=== PATIENT | female | born 1955 | race American Indian/Alaskan Native ===

== ENCOUNTER 2016-11-15 13:55 | Emergency (ER) | payer MEDICAID, OTHER ==
[2016-11-15 13:55] VITALS: BMI 25.7
[2016-11-15 14:11] VITALS: TEMP 97.9
--- NOTE | 2016-11-15 14:23 | C.PDOC ---
History Of Present Illness 61 yr old female with PMHx of HTN and strong FHx of CVA (Brother of stroke and sister recently had 1 stoke), presents to the ER stating she has been very stressed recently due to her sister health and for the past 3 days she has been feeling chest pressure which comes and goes associated with SOB, palpitations and persistent headache. Patient states today she had a brief episode of where she had double vision which lasted for few minutes. Patient reports she takes 3 different blood pressure medicine which has already taken today and is compliant on a daily base. Patient denies fever, chills, chest pain, nausea, vomiting, weakness or numbness. Time Seen by Provider: 11/15/16 14:09 Chief Complaint (Nursing): Palpitations History Per: Patient History/Exam Limitations: no limitations Onset/Duration Of Symptoms: Days (Few days stressed. 3 days of chest pressure. ) Past Medical History Vital Signs: Last Vital Signs Temp 97.9 F 11/15/16 14:07 Pulse 71 11/15/16 15:53 Resp 14 11/15/16 15:53 BP 149/93 H 11/15/16 15:53 Pulse Ox 100 11/15/16 15:53 - Medical History PMH: Anxiety, Arthritis, Asthma (NEWLY DIAGNOSED), Cardia Arrhythmia, HTN, Hypercholesterolemia Denies: Chronic Kidney Disease Surgical History: Cholecystectomy, Endoscopy - [facility] Procedures COLONOSCOPY (02/01/15) LAPAROSCOPIC CHOLECYSTECTOMY (12/22/14) LAPAROSCOPIC ROBOTIC ASSISTED PROCEDURE (12/22/14) Family History: States: Unknown Family Hx - Social History Hx Tobacco Use: No Hx Alcohol Use: Yes Hx Substance Use: No - Immunization History Hx Tetanus Toxoid Vaccination: No Hx Influenza Vaccination: No Hx Pneumococcal Vaccination: No Review Of Systems Except As Marked, All Systems Reviewed And Found Negative. Constitutional: Negative for: Fever, Chills Eyes: Positive for: Vision Change (Double vision ) Cardiovascular: Negative for: Chest Pain, Palpitations Respiratory: Positive for: Shortness of Breath Gastrointestinal: Negative for: Nausea, Vomiting Neurological: Positive for: Headache (Persistent headache ). Negative for: Weakness, Numbness Physical Exam - Physical Exam Appears: Well, Non-toxic, No Acute Distress Skin: Normal Color, Warm, Dry, No Rash Head: Atraumatic, Normacephalic Eye(s): bilateral: Normal Inspection, PERRL, EOMI Oral Mucosa: Moist Neck: Normal, Normal ROM, Supple Chest: Symmetrical, No Tenderness Cardiovascular: Rhythm Regular, No Murmur Respiratory: Normal Breath Sounds, No Rales, No Rhonchi, No Stridor, No Wheezing Gastrointestinal/Abdominal: Normal Exam, Soft, No Tenderness, No Guarding, No Rebound Extremity: Normal ROM, No Swelling Neurological/Psych: Oriented x3, Normal Speech, Normal Motor, Normal Sensation ED Course And Treatment - Laboratory Results Result Diagrams: 11/15/16 14:21 11/15/16 14:21 Lab Interpretation: No Acute Changes ECG: Interpreted By Me, Viewed By Me ECG Rhythm: Sinus Rhythm ECG Interpretation: Normal Interpretation Of ECG: NSR with occasional arrhythmia. Rate From EC (BPM) O2 Sat by Pulse Oximetry: 99 (RA) Pulse Ox Interpretation: Normal - Radiology CXR: Interpreted by Me CXR Interpretation: Yes: No Acute Disease - Other Rad CT - Head X-Ray: Viewed By Me, Read By Radiologist Interpretation: PROCEDURE: CT HEAD WITHOUT CONTRAST. HISTORY: headache with HTN. COMPARISON: None available. TECHNIQUE: Axial computed tomography images were obtained through the head/brain without intravenous contrast. Radiation dose: Total exam DLP = 798 mGy-cm. This CT exam was performed using one or more of the following dose reduction techniques: Automated exposure control, adjustment of the mA and/or kV according to patient size, and/or use of iterative reconstruction technique. FINDINGS: HEMORRHAGE: No intracranial hemorrhage. BRAIN: No mass effect or edema. Scattered focal lucencies in the subcortical and periventricular white matter most prominent in the left frontal subcortical white matter suggestive for chronic microvascular ischemic change. Punctate hypodensity in the left basal ganglia suggestive for a lacunar infarct , stable. Right basal ganglia calcifications. VENTRICLES: Unremarkable. No hydrocephalus. CALVARIUM: Unremarkable. PARANASAL SINUSES: Unremarkable as visualized. No significant inflammatory changes. MASTOID AIR CELLS: Unremarkable as visualized. No inflammatory changes. OTHER FINDINGS: None. IMPRESSION: Chronic microvascular ischemic change. Left basal ganglia lacunar infarct. No acute intracranial abnormality. If headache persists, consider MRI. - CT Scan/US Head Other Rad Studies (CT/US): Read By Radiologist, Radiology Report Reviewed CT/US Interpretation: Accession No. : [id number]. Patient Name / ID : MALLORY CARSON / [id number]. Exam Date : 11/15/2016 15:14:35 ( Approved ). Study Comment : Sex / Age : F / 61Y. Creator : Carlos Xavier MD. Dictator : Carlos Xavier MD. Quality Lab Technician : Visual Educator : Carlos Xavier MD. Approver2 : Report Date : 11/15/2016 15:25:31. My Comment : . PROCEDURE: CT HEAD WITHOUT CONTRAST. HISTORY: headache with HTN. COMPARISON: None available. TECHNIQUE: Axial computed tomography images were obtained through the head/ brain without intravenous contrast. Radiation dose: Total exam DLP = 798 mGy- cm. This CT exam was performed using one or more of the following dose reduction techniques: Automated exposure control, adjustment of the mA and/or kV according to patient size, and/or use of iterative reconstruction technique. FINDINGS: HEMORRHAGE: No intracranial hemorrhage. BRAIN: No mass effect or edema. Scattered focal lucencies in the subcortical and periventricular white matter most prominent in the left frontal subcortical white matter suggestive for chronic microvascular ischemic change. Punctate hypodensity in the left basal ganglia suggestive for a lacunar infarct, stable. Right basal ganglia calcifications. VENTRICLES: Unremarkable. No hydrocephalus. CALVARIUM : Unremarkable. PARANASAL SINUSES: Unremarkable as visualized. No significant inflammatory changes. MASTOID AIR CELLS: Unremarkable as visualized. No inflammatory changes. OTHER FINDINGS: None. IMPRESSION: Chronic microvascular ischemic change. Left basal ganglia lacunar infarct. No acute intracranial abnormality. If headache persists, consider MRI. Reevaluation Time: 16:05 Reassessment Condition: Improved (BP now 143/90 Patient feels better.) Medical Decision Making Medical Decision Making: PLAN: * CT - Chest * CXR * EKG * Troponin * D-DImer * CBC * Lopressor PO Disposition Counseled Patient/Family Regarding: Studies Performed, Diagnosis, Need For Followup - Disposition Referrals: Roel Joshi MD [Staff Provider] - Disposition: HOME/ ROUTINE Disposition Time: 16:10 Condition: IMPROVED Additional Instructions: Take your Metoprolol twice a day starting today. Follow up with Dr Joshi to adjust your blood pressure medications. Instructions: Hypertension (ED) - Clinical Impression Clinical Impression: Hypertension - Scribe Statement The provider has reviewed the documentation as recorded by the Araceli Joel Provider Attestation: All medical record entries made by the Araceli were at my direction and personally dictated by me. I have reviewed the chart and agree that the record accurately reflects my personal performance of the history, physical exam, medical decision making, and the department course for this patient. I have also personally directed, reviewed, and agree with the discharge instructions and disposition.
[2016-11-15 14:28] LABS: BASO # 0.1 K/uL (0.0-0.2); BASO % 1.5 % (0.0-2.0); EOS # 0.4 K/uL (0.0-0.7); EOS % 7.2 % (0.0-4.0); LYMPH # 1.9 K/uL (1.0-4.3); LYMPH % 36.5 % (20.0-40.0); MEAN CELL VOLUME 73.8 fL (81.0-99.0); MEAN CORPUSCULAR HEMOGLOBIN 23.7 pg (27.0-31.0); MEAN CORPUSCULAR HGB CONC 32.1 g/dL (33.0-37.0); MEAN PLATELET VOLUME 9.1 fL (7.2-11.7); MONO # 0.5 K/uL (0.0-0.8); MONO % 9.2 % (0.0-10.0); RED CELL DISTRIBUTION WIDTH 13.9 % (11.5-14.5); WHITE BLOOD COUNT 5.2 K/uL (4.8-10.8)
[2016-11-15 14:35] LABS: CHLORIDE 94 mmol/L (98-107); POTASSIUM 3.2 mmol/L (3.6-5.2); SODIUM 137 mmol/L (132-148)
[2016-11-15 14:37] LABS: ALB/GLOB RATIO 1.3 (1.0-2.1); ALKALINE PHOSPHATASE 59 U/L (38-126); AST/SGOT 24 U/L (14-36); BILIRUBIN,TOTAL 0.6 mg/dL (0.2-1.3); CARBON DIOXIDE 33 mmol/L (22-30); GFR AFRICAN-AMERICAN > 60; TOTAL PROTEIN 7.8 g/dL (6.3-8.3)
[2016-11-15 14:38] LABS: ALT/SGPT 23 U/L (9-52); BLOOD UREA NITROGEN 20 mg/dL (7-17); CALCIUM 8.8 mg/dl (8.6-10.4); GLUCOSE,RANDOM 72 mg/dL (65-105)
--- NOTE | 2016-11-15 15:26 | CT ---
PROCEDURE: CT HEAD WITHOUT CONTRAST. HISTORY: headache with HTN COMPARISON: None available. TECHNIQUE: Axial computed tomography images were obtained through the head/brain without intravenous contrast. Radiation dose: Total exam DLP = 798 mGy-cm. This CT exam was performed using one or more of the following dose reduction techniques: Automated exposure control, adjustment of the mA and/or kV according to patient size, and/or use of iterative reconstruction technique. FINDINGS: HEMORRHAGE: No intracranial hemorrhage. BRAIN: No mass effect or edema. Scattered focal lucencies in the subcortical and periventricular white matter most prominent in the left frontal subcortical white matter suggestive for chronic microvascular ischemic change. Punctate hypodensity in the left basal ganglia suggestive for a lacunar infarct, stable. Right basal ganglia calcifications. VENTRICLES: Unremarkable. No hydrocephalus. CALVARIUM: Unremarkable. PARANASAL SINUSES: Unremarkable as visualized. No significant inflammatory changes. MASTOID AIR CELLS: Unremarkable as visualized. No inflammatory changes. OTHER FINDINGS: None. IMPRESSION: Chronic microvascular ischemic change. Left basal ganglia lacunar infarct. No acute intracranial abnormality. If headache persists, consider MRI.
[2016-11-15 15:54] VITALS: BP 149/93; PULSE 71; RESP 14
[2016-11-15 16:09] VITALS: O2SAT 99
--- NOTE | 2016-11-15 17:45 | RAD ---
PROCEDURE: CHEST RADIOGRAPH, 1 VIEW HISTORY: chest pain COMPARISON: 04/03/2016 FINDINGS: LUNGS: Mild venous congestion. PLEURA: No pneumothorax or pleural fluid seen. CARDIOVASCULAR: Tortuous aorta. OSSEOUS STRUCTURES: No significant abnormalities. VISUALIZED UPPER ABDOMEN: Normal. OTHER FINDINGS: None. IMPRESSION: Mild venous congestion.
--- NOTE | 2016-11-17 14:17 | CARD ---
APPROVED REPORT EKG Measurement Heart [id number] AL [id number] <Conclusion> Normal sinus rhythm with sinus arrhythmia Possible Left atrial enlargement Possible Anterior infarct, age undetermined Abnormal ECG
== END 2016-11-15 16:18 | disposition home or self-care (01) ==
LOC: C.ER 13:55
DX: I10 Essential (primary) hypertension (principal)

== ENCOUNTER 2017-03-16 12:25 | Observation (INO) | payer OTHER ==
[2017-03-16 12:25] VITALS: BMI 25.7
--- NOTE | 2017-03-16 13:01 | CT ---
PROCEDURE: CT HEAD WITHOUT CONTRAST. HISTORY: Code Stroke COMPARISON: Comparison is made to 11/15/2016 TECHNIQUE: Axial computed tomography images were obtained through the head/brain without intravenous contrast. Radiation dose: Total exam DLP = 839.6 mGy-cm. This CT exam was performed using one or more of the following dose reduction techniques: Automated exposure control, adjustment of the mA and/or kV according to patient size, and/or use of iterative reconstruction technique. FINDINGS: HEMORRHAGE: No intracranial hemorrhage. BRAIN: No mass effect or edema. No atrophy or chronic microvascular ischemic changes. VENTRICLES: Unremarkable. No hydrocephalus. CALVARIUM: Unremarkable. PARANASAL SINUSES: Unremarkable as visualized. No significant inflammatory changes. MASTOID AIR CELLS: Unremarkable as visualized. No inflammatory changes. OTHER FINDINGS: None. IMPRESSION: No evidence of acute intracranial hemorrhage territorial infarct mass effect or midline shift. No significant interval change when compared to the previous exam.
[2017-03-16 13:13] LABS: BASO # 0.1 K/uL (0.0-0.2); BASO % 1.1 % (0.0-2.0); EOS # 0.3 K/uL (0.0-0.7); EOS % 6.5 % (0.0-4.0); HEMATOCRIT 38.5 % (34.0-47.0); LYMPH # 1.8 K/uL (1.0-4.3); LYMPH % 35.4 % (20.0-40.0); MEAN CELL VOLUME 73.7 fL (81.0-99.0); MEAN CORPUSCULAR HGB CONC 32.6 g/dL (33.0-37.0); MEAN PLATELET VOLUME 8.5 fL (7.2-11.7); MONO # 0.3 K/uL (0.0-0.8); MONO % 5.5 % (0.0-10.0); RED CELL DISTRIBUTION WIDTH 14.5 % (11.5-14.5); WHITE BLOOD COUNT 5.2 K/uL (4.8-10.8)
[2017-03-16 13:21] LABS: CHLORIDE 101 mmol/L (98-107); INR 1.1
[2017-03-16 13:22] LABS: POTASSIUM 3.4 mmol/L (3.6-5.2); SODIUM 140 mmol/L (132-148)
[2017-03-16 13:24] LABS: ALB/GLOB RATIO 1.2 (1.0-2.1); AST/SGOT 36 U/L (14-36); BILIRUBIN,TOTAL 0.6 mg/dL (0.2-1.3); BLOOD UREA NITROGEN 21 mg/dL (7-17); CARBON DIOXIDE 26 mmol/L (22-30); CHOLESTEROL 190 mg/dL (0-199); GFR AFRICAN-AMERICAN > 60; TOTAL PROTEIN 8.5 g/dL (6.3-8.3)
[2017-03-16 13:25] LABS: ALKALINE PHOSPHATASE 68 U/L (38-126); ALT/SGPT 41 U/L (9-52); GLUCOSE,RANDOM 83 mg/dL (65-105)
--- NOTE | 2017-03-16 13:30 | RAD ---
HISTORY: code stroke COMPARISON: 11/15/2016 FINDINGS: LUNGS: Mild venous congestion with patchy bibasilar airspace opacities. PLEURA: No significant pleural effusion identified, no pneumothorax apparent. CARDIOVASCULAR: Normal. OSSEOUS STRUCTURES: No significant abnormalities. VISUALIZED UPPER ABDOMEN: Normal. OTHER FINDINGS: None. IMPRESSION: Mild venous congestion with patchy bibasilar airspace opacities.
--- NOTE | 2017-03-16 13:39 | C.PDOC ---
History Of Present Illness 61 y/o female with HTN and HLD brought to ED by EMS after being at work and developing "pressure" headache and blurred vision. Patient also reports lightheadedness, generalized weakness and non radiating light chest pain 03/08. Patient was told she has light stroke s in brain. Patient denies fever, nausea, vomiting, loc or any other complaints at this time. Time Seen by Provider: 03/16/17 13:34 Chief Complaint (Nursing): Dizziness/Lightheaded History Per: Patient History/Exam Limitations: no limitations Onset/Duration Of Symptoms: Hrs Current Symptoms Are (Timing): Still Present Activity At Onset Of Symptoms: Standing Past Medical History Reviewed: Historical Data, Nursing Documentation, Vital Signs Vital Signs: Last Vital Signs Temp 9705 F H 03/17/17 07:10 Pulse 88 03/17/17 08:35 Resp 18 03/17/17 07:10 BP 142/82 03/17/17 07:10 Pulse Ox 98 03/17/17 07:10 - Medical History PMH: Anxiety, Arthritis, Asthma (NEWLY DIAGNOSED), Cardia Arrhythmia, HTN, Hypercholesterolemia Surgical History: Cholecystectomy, Endoscopy - [facility] Procedures COLONOSCOPY (02/01/15) LAPAROSCOPIC CHOLECYSTECTOMY (12/22/14) LAPAROSCOPIC ROBOTIC ASSISTED PROCEDURE (12/22/14) Family History: States: No Known Family Hx - Social History Hx Tobacco Use: No Hx Alcohol Use: Yes Hx Substance Use: No - Immunization History Hx Tetanus Toxoid Vaccination: No Hx Influenza Vaccination: No Hx Pneumococcal Vaccination: No Review Of Systems Except As Marked, All Systems Reviewed And Found Negative. Constitutional: Negative for: Fever, Chills Eyes: Positive for: Vision Change Cardiovascular: Positive for: Chest Pain Respiratory: Negative for: Shortness of Breath Gastrointestinal: Negative for: Nausea, Vomiting Skin: Negative for: Rash Neurological: Positive for: Weakness, Headache, Dizziness. Negative for: Numbness Physical Exam - Physical Exam Appears: Non-toxic, No Acute Distress Skin: Normal Color, Warm, Dry, No Rash Head: Atraumatic, Normacephalic Eye(s): bilateral: Normal Inspection Oral Mucosa: Moist Neck: Normal ROM, Supple Chest: Other (Reproducible chest pain) Cardiovascular: Rhythm Regular, No Murmur Respiratory: Normal Breath Sounds, No Rales, No Rhonchi, No Wheezing Gastrointestinal/Abdominal: Soft, No Tenderness, No Guarding, No Rebound Neurological/Psych: Oriented x3, Normal Speech, Normal Cranial Nerves, Normal Motor, Normal Sensation Gait: Unsteady ED Course And Treatment - Laboratory Results Result Diagrams: 03/16/17 13:06 03/16/17 13:06 ECG: Interpreted By Me, Viewed By Me ECG Rhythm: Sinus Rhythm ECG Interpretation: No Acute Changes Rate From EC (bpm) O2 Sat by Pulse Oximetry: 97 (RA) Pulse Ox Interpretation: Normal NIHSS Stroke Scale - Date/Time Evaluation Performed Date Performed: 03/16/17 Time Performed: 13:00 When Was NIHSS Performed: Baseline - How Severe is the Stoke Level of Consciousness: 0=Alert LOC to Questions: 0=Both comments correct LOC to commands: 0=Obeys both correctly Best Gaze: 0=Normal Visual: 0=No visual loss Facial: 0=Normal Motor Arm - Left: 0=No drift Motor Arm - Right: NA - Amputation, joint fusion Motor Leg - Left: 0=No drift Motor Leg - Right: 0=No drift Limb Ataxia: 0=Absent Sensory: 0=Normal Best Language: 0=No aphasia Dysarthia: 0=Normal articulation Extinction & Inattention (Neglect): 0=Normal, no object Score: 0 Severity Of Stroke: 0= No Stroke Disposition Discussed With : Sourav Coreas - Disposition Disposition: HOSPITALIZED Disposition Time: 14:07 Condition: GUARDED - Clinical Impression Clinical Impression: Dizziness, Head ache, Ataxic gait - Scribe Statement The provider has reviewed the documentation as recorded by the Zuriibzuri Bland All medical record entries made by the Zuriibzuri were at my direction and personally dictated by me. I have reviewed the chart and agree that the record accurately reflects my personal performance of the history, physical exam, medical decision making, and the department course for this patient. I have also personally directed, reviewed, and agree with the discharge instructions and disposition. Decision To Admit - Pt Status Changed To: Hospital Disposition Of: Observation - InPatient: Physician Admission Certification: I certify that this patient requires 2 or more midnights of care for the following reason:: stroke -like symptoms - . Bed Request Type: Telemetry Patient Diagnosis: Dizziness, Head ache, Ataxic gait
[2017-03-16 14:05] LABS: ALCOHOL SERUM < 10 mg/dl (0-10)
[2017-03-16 14:12] LABS: RBC URINE < 1 /hpf (0-3); URINE BACTERIA RARE (<OCC); URINE BILIRUBIN NEGATIVE (NEGATIVE); URINE BLOOD NEGATIVE (NEGATIVE); URINE COLOR Colorless (YELLOW); URINE GLUCOSE (UA) NORMAL (Normal); URINE KETONE NEGATIVE (NEGATIVE); URINE LEUKOCYTE ESTERASE 1+ Leu/uL (Negative); URINE PROTEIN NEGATIVE (NEGATIVE); URINE UROBILINOGEN NORMAL mg/dL (0.2-1.0); WBC URINE 5 /hpf (0-5)
--- NOTE | 2017-03-16 15:13 | CARD ---
APPROVED REPORT EXAM: Two-dimensional and M-mode echocardiogram with Doppler and color Doppler. Other Information Quality : GoodRhythm : NSR INDICATION CVA/TIA RISK FACTORS Hypertension 2D DIMENSIONS IVSd0.6 (0.7-1.1cm)LVDd4.1 (3.9-5.9cm) PWd0.9 (0.7-1.1cm)LVDs2.4 (2.5-4.0cm) FS (%) 40.8 %LVEF (%)72.1 (>50%) M-Mode DIMENSIONS RVDd1.85 (2.1-3.2cm)Left Atrium (MM)3.28 (2.5-4.0cm) IVSd0.97 (0.7-1.1cm)Aortic Root2.40 (2.2-3.7cm) LVDd4.46 (4.0-5.6cm)Aortic Cusp Exc.1.79 (1.5-2.0cm) PWd0.88 (0.7-1.1cm)FS (%) 55 % LVDs2.00 (2.0-3.8cm)LVEF (%)86 (>50%) Mitral Valve MV E Zazytttp36.0cm/sMV A Pwysewgn91.9cm/sE/A ratio0.8 TDI E/Lateral E'0.0E/Medial E'0.0 Tricuspid Valve TR Peak Kzquzjxs726mp/sTR Peak Gr.[id number] LEFT VENTRICLE The left ventricle is normal size. There is normal left ventricular wall thickness. The left ventricular function is normal. The left ventricular ejection fraction is within the normal range. There is normal LV segmental wall motion. Transmitral Doppler flow pattern is abnormal. RIGHT VENTRICLE The right ventricle is normal size. ATRIA The left atrium size is normal. The right atrium size is normal. AORTIC VALVE The aortic valve is normal in structure. MITRAL VALVE Mitral regurgitation is mild. TRICUSPID VALVE There is mild to moderate tricuspid regurgitation. <Conclusion> Normal LV systolic function. Diastolic dysfunction. Mild MR. Mild to moderate TR. Normal chammber size.
--- NOTE | 2017-03-16 18:02 | CP.PCM.HP ---
Past Patient History - Infectious Disease Hx of Infectious Diseases: None - Past Medical History & Family History Past Medical History?: Yes - Past Social History Smoking Status: Never Smoked - CARDIAC Hx Cardia Arrhythmia: Yes Hx Hypercholesterolemia: Yes Hx Hypertension: Yes - PULMONARY Hx Asthma: Yes (NEWLY DIAGNOSED) - NEUROLOGICAL Hx Neurological Disorder: Yes Hx Vertigo: Yes - HEENT Hx HEENT Problems: No - RENAL Hx Chronic Kidney Disease: No - ENDOCRINE/METABOLIC Hx Endocrine Disorders: No - HEMATOLOGICAL/ONCOLOGICAL Hx Blood Disorders: No - INTEGUMENTARY Hx Dermatological Problems: No - MUSCULOSKELETAL/RHEUMATOLOGICAL Hx Arthritis: Yes - GASTROINTESTINAL Hx Gastrointestinal Disorders: No - GENITOURINARY/GYNECOLOGICAL Hx Genitourinary Disorders: No - PSYCHIATRIC Hx Anxiety: Yes Hx Substance Use: No - SURGICAL HISTORY Hx Cholecystectomy: Yes - ANESTHESIA Hx Anesthesia: Yes Hx Anesthesia Reactions: No Hx Malignant Hyperthermia: No Meds Allergies/Adverse Reactions: Allergies Allergy/AdvReac Type Severity Reaction Status Date / Time codeine Allergy Verified 11/15/16 14:11 Physical Exam - Constitutional Appears: Well - Head Exam Head Exam: ATRAUMATIC, NORMAL INSPECTION, NORMOCEPHALIC - Eye Exam Eye Exam: EOMI, Normal appearance, PERRL Pupil Exam: NORMAL ACCOMODATION, PERRL - ENT Exam ENT Exam: Mucous Membranes Moist, Normal Exam - Neck Exam Neck exam: Positive for: Normal Inspection - Respiratory Exam Respiratory Exam: Decreased Breath Sounds - Cardiovascular Exam Cardiovascular Exam: REGULAR RHYTHM, +S1, +S2 - GI/Abdominal Exam GI & Abdominal Exam: Diminished Bowel Sounds, Soft - Rectal Exam Rectal Exam: Deferred Results - Vital Signs Recent Vital Signs: Last Vital Signs Temp 98.2 F 03/16/17 15:40 Pulse 80 03/16/17 15:40 Resp 20 03/16/17 15:40 BP 166/73 H 03/16/17 15:40 Pulse Ox 99 03/16/17 15:40 - Labs Result Diagrams: 03/16/17 13:06 03/16/17 13:06
[2017-03-16] MEDS ORDERED: Albuterol HFA 90 mcg/actuation (8 g) INH PRN ×2 (18:16→18:30)
--- NOTE | 2017-03-17 06:37 | CP.PCM.CON ---
History of Present Illness - History of Present Illness History of Present Illness: CONSULT DICTATED HTN WITH BLURRED VISION AND MID CEREBELLAR DYSFUNCTION ISCHEMIA VS MIGRAINE D/C ASA PLAVIX STROKE WORK UP PER ORDER Past Patient History - Infectious Disease Hx of Infectious Diseases: None - Past Medical History & Family History Past Medical History?: Yes - Past Social History Smoking Status: Never Smoked - CARDIAC Hx Cardia Arrhythmia: Yes Hx Hypercholesterolemia: Yes Hx Hypertension: Yes - PULMONARY Hx Asthma: Yes (NEWLY DIAGNOSED) - NEUROLOGICAL Hx Neurological Disorder: Yes Hx Vertigo: Yes - HEENT Hx HEENT Problems: No Other/Comment: farsightedness - RENAL Hx Chronic Kidney Disease: No - ENDOCRINE/METABOLIC Hx Endocrine Disorders: No - HEMATOLOGICAL/ONCOLOGICAL Hx Blood Disorders: No - INTEGUMENTARY Hx Dermatological Problems: No - MUSCULOSKELETAL/RHEUMATOLOGICAL Hx Arthritis: Yes Hx Falls: No - GASTROINTESTINAL Hx Gastrointestinal Disorders: No - GENITOURINARY/GYNECOLOGICAL Hx Genitourinary Disorders: No - PSYCHIATRIC Hx Anxiety: Yes Hx Substance Use: No - SURGICAL HISTORY Hx Cholecystectomy: Yes - ANESTHESIA Hx Anesthesia: Yes Hx Anesthesia Reactions: No Hx Malignant Hyperthermia: No Meds Allergies/Adverse Reactions: Allergies Allergy/AdvReac Type Severity Reaction Status Date / Time codeine Allergy Verified 11/15/16 14:11 - Medications Medications: Current Medications Albuterol (Ventolin Hfa 90 Mcg/Actuation (8 G)) 1 puff INH RQ6 PRN PRN Reason: Cough and congestion Amlodipine Besylate (Norvasc) 5 mg PO DAILY [facility] Clopidogrel Bisulfate (Plavix) 75 mg PO DAILY [facility] Enoxaparin Sodium (Lovenox) 40 mg SC DAILY [facility] Hydrochlorothiazide (Hydrodiuril) 25 mg PO DAILY [facility] Ibuprofen (Motrin Tab) 600 mg PO TIDPC [facility] Losartan Potassium (Cozaar) 100 mg PO DAILY [facility] Metoprolol Tartrate (Lopressor) 50 mg PO DAILY [facility] Pantoprazole Sodium (Protonix Ec Tab) 40 mg PO DAILY [facility] Potassium Chloride (Klor-Con 10) 10 meq PO BRK [facility] Rosuvastatin Calcium (Crestor) 10 mg PO HS [facility] Last Admin: 03/16/17 22:30 Dose: 10 mg Tramadol HCl (Ultram) 50 mg PO Q6 PRN PRN Reason: Pain, severe (8-10) Last Admin: 03/16/17 20:01 Dose: 50 mg Results - Vital Signs Recent Vital Signs: Last Vital Signs Temp 97.5 F L 03/16/17 23:05 Pulse 76 03/17/17 00:00 Resp 20 03/16/17 23:05 BP 151/78 H 03/16/17 23:05 Pulse Ox 99 03/16/17 23:05 - Labs Result Diagrams: 03/16/17 13:06 03/16/17 13:06 Labs: Laboratory Results - last 24 hr 03/16/17 03/16/17 03/16/17 12:41 13:06 13:06 WBC 5.2 RBC 5.22 H Hgb 12.5 Hct 38.5 MCV 73.7 L MCH 24.0 L MCHC 32.6 L RDW 14.5 Plt Count 207 MPV 8.5 Neut % (Auto) 51.5 Lymph % (Auto) 35.4 Stokes % (Auto) 5.5 Eos % (Auto) 6.5 H Baso % (Auto) 1.1 Neut # 2.7 Lymph # 1.8 Stokes # 0.3 Eos # 0.3 Baso # 0.1 PT 12.1 INR 1.1 APTT 34 Sodium Potassium Chloride Carbon Dioxide Anion Gap BUN Creatinine Est GFR ( Amer) Est GFR (Non-Af Amer) Random Glucose Hemoglobin A1c 6.4 Calcium Total Bilirubin AST ALT Alkaline Phosphatase Troponin I Total Protein Albumin Globulin Albumin/Globulin Ratio Triglycerides Cholesterol LDL Cholesterol Direct HDL Cholesterol Urine Color Urine Clarity Urine pH Ur Specific Waddy Urine Protein Urine Glucose (UA) Urine Ketones Urine Blood Urine Nitrate Urine Bilirubin Urine Urobilinogen Ur Leukocyte Esterase Urine WBC (Auto) Urine RBC (Auto) Urine Bacteria Urine Opiates Screen Urine Methadone Screen Ur Barbiturates Screen Ur Phencyclidine Scrn Ur Amphetamines Screen U Benzodiazepines Scrn U Oth Cocaine Metabols U Cannabinoids Screen Alcohol, Quantitative Blood Type Antibody Screen 03/16/17 03/16/17 03/16/17 13:06 13:36 13:53 WBC RBC Hgb Hct MCV MCH MCHC RDW Plt Count MPV Neut % (Auto) Lymph % (Auto) Stokes % (Auto) Eos % (Auto) Baso % (Auto) Neut # Lymph # Stokes # Eos # Baso # PT INR APTT Sodium 140 Potassium 3.4 L Chloride 101 Carbon Dioxide 26 Anion Gap 16 BUN 21 H Creatinine 0.8 Est GFR ( Amer) > 60 Est GFR (Non-Af Amer) > 60 Random Glucose 83 Hemoglobin A1c Calcium 9.0 Total Bilirubin 0.6 AST 36 ALT 41 Alkaline Phosphatase 68 Troponin I < 0.0120 Total Protein 8.5 H Albumin 4.7 Globulin 3.8 Albumin/Globulin Ratio 1.2 Triglycerides 109 Cholesterol 190 LDL Cholesterol Direct 125 HDL Cholesterol 52 Urine Color Colorless Urine Clarity Clear Urine pH 6.0 Ur Specific Waddy 1.003 Urine Protein Negative Urine Glucose (UA) Normal Urine Ketones Negative Urine Blood Negative Urine Nitrate Negative Urine Bilirubin Negative Urine Urobilinogen Normal Ur Leukocyte Esterase 1+ H Urine WBC (Auto) 5 Urine RBC (Auto) < 1 Urine Bacteria Rare Urine Opiates Screen Urine Methadone Screen Ur Barbiturates Screen Ur Phencyclidine Scrn Ur Amphetamines Screen U Benzodiazepines Scrn U Oth Cocaine Metabols U Cannabinoids Screen Alcohol, Quantitative < 10 Blood Type A POSITIVE Antibody Screen Negative 03/16/17 13:53 WBC RBC Hgb Hct MCV MCH MCHC RDW Plt Count MPV Neut % (Auto) Lymph % (Auto) Stokes % (Auto) Eos % (Auto) Baso % (Auto) Neut # Lymph # Stokes # Eos # Baso # PT INR APTT Sodium Potassium Chloride Carbon Dioxide Anion Gap BUN Creatinine Est GFR ( Amer) Est GFR (Non-Af Amer) Random Glucose Hemoglobin A1c Calcium Total Bilirubin AST ALT Alkaline Phosphatase Troponin I Total Protein Albumin Globulin Albumin/Globulin Ratio Triglycerides Cholesterol LDL Cholesterol Direct HDL Cholesterol Urine Color Urine Clarity Urine pH Ur Specific Waddy Urine Protein Urine Glucose (UA) Urine Ketones Urine Blood Urine Nitrate Urine Bilirubin Urine Urobilinogen Ur Leukocyte Esterase Urine WBC (Auto) Urine RBC (Auto) Urine Bacteria Urine Opiates Screen Negative Urine Methadone Screen Negative Ur Barbiturates Screen Negative Ur Phencyclidine Scrn Negative Ur Amphetamines Screen Negative U Benzodiazepines Scrn Negative U Oth Cocaine Metabols Negative U Cannabinoids Screen Negative Alcohol, Quantitative Blood Type Antibody Screen
[2017-03-17] MEDS ORDERED: Potassium Chloride 10 mEq ER Tab PO SCH (08:00)
[2017-03-17] MEDS: Enoxaparin 40 mg Syringe SC SCH (10:24)
[2017-03-17] MEDS ORDERED: Gadodiamide 287 MG/ML VIAL (15ML) IV ONE (12:32)
[2017-03-17] MEDS ORDERED: Potassium Chloride 10 mEq ER Tab PO STA (12:53)
--- NOTE | 2017-03-17 14:53 | CARD ---
APPROVED REPORT EKG Measurement Heart [id number] <Conclusion> Normal sinus rhythm Possible Left atrial enlargement Left ventricular hypertrophy Abnormal ECG
--- NOTE | 2017-03-17 21:26 | CP.PCM.PN ---
Subjective - Date & Time of Evaluation Date of Evaluation: 03/17/17 Time of Evaluation: 11:40 - Subjective Subjective: clinically same Objective - Vital Signs/Intake and Output Vital Signs (last 24 hours): Temp Pulse Resp BP Pulse Ox 97.5 F L 60 18 127/80 98 03/17/17 15:54 03/17/17 15:54 03/17/17 15:54 03/17/17 15:54 03/17/17 15:54 Intake and Output: 03/17/17 03/18/17 18:59 06:59 Intake Total 500 Balance 500 - Medications Medications: Current Medications Albuterol (Ventolin Hfa 90 Mcg/Actuation (8 G)) 1 puff INH RQ6 PRN PRN Reason: Cough and congestion Amlodipine Besylate (Norvasc) 5 mg PO DAILY [facility] Last Admin: 03/17/17 10:23 Dose: 5 mg Clopidogrel Bisulfate (Plavix) 75 mg PO DAILY [facility] Last Admin: 03/17/17 10:23 Dose: 75 mg Enoxaparin Sodium (Lovenox) 40 mg SC DAILY [facility] Last Admin: 03/17/17 10:24 Dose: 40 mg Famotidine (Pepcid) 20 mg PO BID [facility] Last Admin: 03/17/17 17:47 Dose: 20 mg Hydrochlorothiazide (Hydrodiuril) 25 mg PO DAILY [facility] Last Admin: 03/17/17 10:22 Dose: 25 mg Ibuprofen (Motrin Tab) 600 mg PO TIDPC [facility] Last Admin: 03/17/17 17:46 Dose: 600 mg Lorazepam (Ativan) 1 mg IVP ONCE PRN PRN Reason: Prior to MRI. Last Admin: 03/17/17 11:35 Dose: 1 mg Losartan Potassium (Cozaar) 100 mg PO DAILY [facility] Last Admin: 03/17/17 10:22 Dose: 100 mg Metoprolol Tartrate (Lopressor) 50 mg PO DAILY [facility] Last Admin: 03/17/17 10:23 Dose: 50 mg Rosuvastatin Calcium (Crestor) 10 mg PO HS [facility] Last Admin: 03/16/17 22:30 Dose: 10 mg Tramadol HCl (Ultram) 50 mg PO Q6 PRN PRN Reason: Pain, severe (8-10) Last Admin: 03/16/17 20:01 Dose: 50 mg - Labs Labs: 03/16/17 13:06 03/16/17 13:06 PT 12.1 SECONDS (9.7-12.2) 03/16/17 13:06 INR 1.1 03/16/17 13:06 APTT 34 SECONDS (21-34) 03/16/17 13:06 - Constitutional Appears: Well - Head Exam Head Exam: ATRAUMATIC, NORMAL INSPECTION, NORMOCEPHALIC - Eye Exam Eye Exam: EOMI, Normal appearance, PERRL Pupil Exam: NORMAL ACCOMODATION, PERRL - ENT Exam ENT Exam: Mucous Membranes Moist, Normal Exam - Respiratory Exam Respiratory Exam: Decreased Breath Sounds - Cardiovascular Exam Cardiovascular Exam: REGULAR RHYTHM, +S1, +S2 - GI/Abdominal Exam GI & Abdominal Exam: Soft, Diminished Bowel Sounds - Rectal Exam Rectal Exam: Deferred
[2017-03-18 08:19] VITALS: BP 124/87; RESP 18; TEMP 98.2; O2SAT 99
--- NOTE | 2017-03-18 09:08 | MRI ---
PROCEDURE: MRI BRAIN WITH AND WITHOUT CONTRAST HISTORY: Stroke COMPARISON: Comparison made with CT scan brain dated 03/16/2017 TECHNIQUE: Multiplanar, multisequence MR images of the brain were obtained with and without intravenous contrast enhancement. FINDINGS: HEMORRHAGE: No acute parenchymal, subarachnoid or extra-axial hemorrhage. . No hemosiderin deposition identified on gradient echo weighted sequence. DWI: No evidence of an acute or early subacute infarction. Seen on diffusion imaging. . BRAIN PARENCHYMA: Multiple small round and elliptical shaped nonenhancing nonspecific foci of increased T2 signal seen scattered about the subcortical and deep white matter both cerebral hemispheres. Additionally, are very minor slightly confluent prolonged T2 signal changes in the periventricular white matter is well. None of these changes exhibit restricted diffusion. Findings most likely represent mild chronic sequela of small vessel disease. Differential diagnosis would include sequela of old migraine headaches, old trauma, post infectious or inflammatory etiologies. Atypical presentation of a demyelinating disease process would be less likely in the absence of a pertinent clinical history however not completely excluded. . Mild generalized volume loss. ENHANCEMENT: No there are no enhancing parenchymal nor extra-axial masses or collections. . There is a faint tiny rounded enhancement be located in the left parasagittal posterior frontal subarachnoid space of bordering the interhemispheric fissure (just anterior the region of the precuneus the, probably along the cingulate gyrus the) seen on postcontrast is axial series 14, image number 9 that probably represents enhancing vasculature as there is no edema or corresponding signal abnormality in this location on additional sequences. . No definitive evidence of abnormal meningeal enhancement. VENTRICLES: No obstructive hydrocephalus. CRANIUM: No calvarial abnormalities ORBITS: Orbits and contents grossly unremarkable so far as can be seen through motion artifact. . PARANASAL SINUSES/MASTOIDS: There is moderate mucosal thickening right maxillary antrum and mild mucosal thickening left maxillary antrum. Minor mucosal thickening also seen within a few ethmoid air cells. VASCULAR SYSTEM: Visualized major vascular flow voids at skull base are patent. OTHER FINDINGS: None . IMPRESSION: No acute intracranial hemorrhage or infarct. Scattered small nonenhancing nonspecific focal areas of increased T2 signal scattered about the subcortical and deep white matter both cerebral hemispheres of uncertain etiology though most likely represent chronic sequela of small vessel disease. See above discussion for differential diagnostic considerations. There is also minimal chronic slightly could confluent nonenhancing prolonged T2 signal changes in the periventricular white matter as well, also felt to represent sequela of chronic small vessel disease. A faintly enhancing tiny rounded focus of enhancement left posterior frontal parietal region, within the subarachnoid space or along the cortex, as described that probably represents a enhancing vasculature -draining vein. See above discussion for additional details and findings. ID mildly just a heads of on over on the Nathen used to some MR inspissated no
--- NOTE | 2017-03-18 09:13 | CON ---
NEUROLOGICAL INITIAL EVALUATION REASON FOR CONSULTATION: Hypertension with visual changes. CHIEF COMPLAINT: The patient was brought in by EMS with a history of increasing head pressure associated with blurred vision while she was at work. From neurologic point of view, I was called in to evaluate her for further management. HISTORY OF PRESENT ILLNESS: The patient is a 61-year-old right-handed -Malagasy female who was in her usual state of health, presenting with third episode of head pressure associated with shortness of breath and increase in blood pressure (more than 200), associated with blurred vision. Two episodes happened, one was last year and one was earlier this year, being diagnosed all related to the blood pressure. However, this episode was similar to that. She is noncompliant with medication. The blurriness of the vision she stated as the bogginess and no history of loss of vision completely. No history of double vision. No history of headache associated with this problem. At the emergency room, the patient was found be wobbling her legs which is somewhat new to her as above. She has been suffering from migraine for many years, never been diagnosed, never been treated. PAST MEDICAL HISTORY: Hypertension, dyslipidemia. PERSONAL HISTORY: Denies smoking or alcohol use. She is a mother of 3 children and had one miscarriage. 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 REVIEW OF SYSTEMS: A 16-point system has been reviewed. From neuro, wobbly leg and blurred vision. PHYSICAL EXAMINATION: VITAL SIGNS: Her blood pressure 135/82, heart rate 78, respiratory rate 16, temperature afebrile. NECK: Supple. No carotid bruit. HEART: Sounds are regular. CHEST: Fair air entry. EXTREMITIES: No edema of legs. NEUROLOGICAL: Mental status examination: She is awake, alert, and oriented to person, place, and time. Speech is clear. Naming, repetition, fluency, comprehension all within normal. Cranial nerve examination: Visual field is intact. Pupils reactive to light. Extraocular movement normal. No nystagmus. No facial sensory deficit. No facial asymmetry. Hearing is normal. Tongue is midline. Good gag. Motor examination: Outstretched hand with eyes closed, no drift is noted. Power is symmetric on either side. Deep tendon reflexes: Biceps, brachialis, and triceps trace. Both knees have 2. Both ankles have absent. Plantars are downgoing. Coordination: [id number] test is intact. Gait: She walks normal; however, the walking is, she stated, not how it used to be. Tandem is poor. She could not walk straight. She was leaning on both sides. LABORATORY DATA: Blood workup cannot be reviewed at present. However, earlier I reviewed which was almost normal from my memory. CT of the head also was reviewed by me earlier which was unremarkable. At present, computer is down, could not able to review myself. CONCLUSION: Upon reviewing her history and neurological examination, the patient has been presenting with hypertensive episode associated with blurred vision and mid cerebellar dysfunction, all suggestive of posterior cerebral artery territory dysfunction. Considering her risk factors, this probably is ischemic process affecting the brainstem region. However, other possible causes considering her history of migraine, it could be a brainstem migraine if all workup for stroke is negative. RECOMMENDATION: 1. The patient has been taking aspirin regularly. Since the aspirin failed, the patient can be considered to be switched to Plavix. 2. Angiotensin-receptor blockers with statin should be given. 3. Out of bed and physical therapy. 4. MRA of the brain/carotid Doppler/echocardiogram is also recommended. The patient will be followed while she is in the hospital. Rohit Rordiguez MD
[2017-03-18] MEDS: Enoxaparin 40 mg Syringe SC SCH ×2 (10:03→10:06)
--- NOTE | 2017-03-18 12:18 | PN ---
DATE: NEUROLOGIC PROBLEM: Possible transient ischemic attack versus migraine. PHYSICAL EXAMINATION: VITAL SIGNS: Blood pressure 141/79, mean artery pressure of 99, respiratory rate 16, temperature 97.7, pulse rate 57. The patient's examination, which is unchanged. The patient is comfortable. She slept good. The patient did have MRI of the brain with no acute pathologies noted. I saw the workup, all have come to normal. If medically stable, the patient can be discharged and should have followup visit as an outpatient. Rohit Rodriguez MD
--- NOTE | 2017-03-18 13:47 | CP.PCM.PN ---
Subjective - Date & Time of Evaluation Date of Evaluation: 03/18/17 Time of Evaluation: 13:45 - Subjective Subjective: Progress note. Attending: Dr. Coreas Pt seen and examined at bedside. No acute distress. No events overnight. Neuro workup in progress. No fevers, chills, vomiting, diarrhea. Still has a little dizziness. Objective - Vital Signs/Intake and Output Vital Signs (last 24 hours): Temp Pulse Resp BP Pulse Ox 98.2 F 75 18 124/87 99 03/18/17 07:10 03/18/17 07:10 03/18/17 07:10 03/18/17 07:10 03/18/17 07:10 Intake and Output: 03/18/17 03/18/17 06:59 18:59 Intake Total 600 Balance 600 - Medications Medications: Current Medications Albuterol (Ventolin Hfa 90 Mcg/Actuation (8 G)) 1 puff INH RQ6 PRN PRN Reason: Cough and congestion Amlodipine Besylate (Norvasc) 5 mg PO DAILY [facility] Last Admin: 03/18/17 10:03 Dose: 5 mg Clopidogrel Bisulfate (Plavix) 75 mg PO DAILY [facility] Last Admin: 03/18/17 10:02 Dose: 75 mg Enoxaparin Sodium (Lovenox) 40 mg SC DAILY [facility] Last Admin: 03/18/17 10:06 Dose: Not Given Famotidine (Pepcid) 20 mg PO BID [facility] Last Admin: 03/18/17 10:02 Dose: 20 mg Hydrochlorothiazide (Hydrodiuril) 25 mg PO DAILY [facility] Last Admin: 03/18/17 10:02 Dose: 25 mg Ibuprofen (Motrin Tab) 600 mg PO TIDPC [facility] Last Admin: 03/18/17 13:28 Dose: 600 mg Lorazepam (Ativan) 1 mg IVP ONCE PRN PRN Reason: Prior to MRI. Last Admin: 03/17/17 11:35 Dose: 1 mg Losartan Potassium (Cozaar) 100 mg PO DAILY [facility] Last Admin: 03/18/17 10:03 Dose: 100 mg Metoprolol Tartrate (Lopressor) 50 mg PO DAILY [facility] Last Admin: 03/18/17 10:02 Dose: 50 mg Rosuvastatin Calcium (Crestor) 10 mg PO HS [facility] Last Admin: 03/17/17 22:16 Dose: 10 mg Tramadol HCl (Ultram) 50 mg PO Q6 PRN PRN Reason: Pain, severe (8-10) Last Admin: 03/16/17 20:01 Dose: 50 mg - Labs Labs: 03/16/17 13:06 03/16/17 13:06 PT 12.1 SECONDS (9.7-12.2) 03/16/17 13:06 INR 1.1 03/16/17 13:06 APTT 34 SECONDS (21-34) 03/16/17 13:06 - Constitutional Appears: Non-toxic, No Acute Distress - Head Exam Head Exam: ATRAUMATIC, NORMAL INSPECTION, NORMOCEPHALIC - Eye Exam Eye Exam: EOMI - ENT Exam ENT Exam: Mucous Membranes Moist - Neck Exam Neck Exam: Full ROM, Normal Inspection - Respiratory Exam Respiratory Exam: NORMAL BREATHING PATTERN. absent: Respiratory Distress - Cardiovascular Exam Cardiovascular Exam: +S1, +S2 - GI/Abdominal Exam GI & Abdominal Exam: Soft, Normal Bowel Sounds. absent: Tenderness - Extremities Exam Extremities Exam: Full ROM, Normal Inspection - Back Exam Back Exam: NORMAL INSPECTION - Neurological Exam Neurological Exam: Alert, Awake, Oriented x3 - Psychiatric Exam Psychiatric exam: Normal Affect, Normal Mood - Skin Skin Exam: Dry, Intact, Normal Color, Warm Assessment and Plan - Assessment and Plan (Free Text) Assessment: This is a 61 yo female with past medical hx of HTN, HLD presenting with headache and blurry vision 1. TIA, R/O CVA -neurology Dr. Rodriguez consulted. recs appreciated. -clopidogrel 75 daily -MRI normal -tramadol 50 po q6 -ibuprofen for pain -carotid dopplers pending -echo shows normal LV fx, some diastolic disease -mild MR -mild TR -CXR shows mild venous congestion 2. SOB -albuterol inhaler 3. HTN -norvasc 5 daily -lopressor 50 po -hctz 25 po daily -losartan 100 daily 4. hx of HLD -crestor 10 po hs 5. GI/DVT ppx -lovenox -pepcid BID Dispo: plan for discharge home today Discussed with Dr Coreas
[2017-03-18 14:05] VITALS: PULSE 67
== END 2017-03-18 16:15 | disposition home or self-care (01) ==
LOC: C.ER 12:25 → C.6T 14:08 → INTOOBSV 14:08
PROVIDERS: ADMIT Internal Medicine Nephrology; ATTEND Internal Medicine Nephrology
DX: G45.9 Transient cerebral ischemic attack, unspecified (principal); I10 Essential (primary) hypertension; R06.00 Dyspnea, unspecified; G43.909 Migraine, unspecified, not intractable, without status migrainosus; E78.5 Hyperlipidemia, unspecified; Z91.14 Patient's other noncompliance with medication regimen
CPT/HCPCS: 70450; 70552; 71010; 80053; 80061; 80320; 80324; 80345; 80346; 80349; 80353; 80358; 80361; 81001; 82948; 83036; 83992; 84484; 85025; 85610; 85651; 85730; 86140; 86334; 86592; 86850; 86900; 93005; 93306; 93880; 97116; 97162; 97165; 97530; 99285; A9579; G0378; G8978; G8979; G8987; G8988; G8989; J1650; J2060

== ENCOUNTER 2017-05-16 10:24 | Emergency (ER) | payer OTHER ==
[2017-05-16 10:35] VITALS: BMI 27.4
[2017-05-16 10:36] VITALS: O2SAT 99
--- NOTE | 2017-05-16 10:47 | C.PDOC ---
History Of Present Illness Patient is a 61 year old female who presents to the ED with a complaint of recurring dizziness since this morning. Patient has a Hx of ED visits for the same complaints; patient reports to have been told cause was HTN. Admits to be compliant with medications. Denies chest pain, palpitations, or syncope. Patient also notes right-sided throat pain and intermittent epistaxis to right nostril; last episode yesterday. No other physical complaints at this time. CO RECUR DIZZINESS ONSET THIS MORNING. ALSO NEW ONSET R SIDED THROAT PAIN THIS MORNING. PRIOR ER VISITS FOR DIZZINESS, PS EPISODE SIM TO PRIOR "I WAS TOLD BC OF MY HTN". COMPLIANT W MEDS. NO ASSOC CP, PALP, SYNCOPE. ALSO W INTERMIT R EPISTAXIS, LAST EPISODE YEST. PMHanxiety, arthritis, Asthma, arrhythmias, HTN, hypercholesterolemia EXAM 130/80 NAD HEENT NO ACTIVE EPISTAXIS; THROAT CLEAR NO EXUDATE, ERYTHEMA, SWELL +R SUBMAND NODE <1 CM MOBILE W LOCAL TEND, REPRODUC PAIN REMAINDER NEG mdm ADMISSION 02/2017 FOR TIA. MRI, CAROTID, ECHO REPORTS REVIEWED. Time Seen by Provider: 05/16/17 10:44 Chief Complaint (Nursing): Dizziness/Lightheaded History Per: Patient History/Exam Limitations: no limitations Onset/Duration Of Symptoms: Hrs (this morning) Current Symptoms Are (Timing): Still Present Fall Associated With With Symptoms: No Recent travel outside of the [place]: No Additional History Per: Patient Past Medical History Reviewed: Historical Data, Nursing Documentation, Vital Signs Vital Signs: Last Vital Signs Temp 98.3 F 05/16/17 10:35 Pulse 66 05/16/17 10:35 Resp 17 05/16/17 10:35 BP 136/87 05/16/17 10:35 Pulse Ox 99 05/16/17 11:43 - Medical History PMH: Anxiety, Arthritis, Asthma (NEWLY DIAGNOSED), Cardia Arrhythmia, HTN, Hypercholesterolemia Denies: Chronic Kidney Disease Surgical History: Cholecystectomy, Endoscopy - [facility] Procedures COLONOSCOPY (02/01/15) LAPAROSCOPIC CHOLECYSTECTOMY (12/22/14) LAPAROSCOPIC ROBOTIC ASSISTED PROCEDURE (12/22/14) Family History: States: Unknown Family Hx - Social History Hx Tobacco Use: No Hx Alcohol Use: Yes Hx Substance Use: No - Immunization History Hx Tetanus Toxoid Vaccination: No Hx Influenza Vaccination: No Hx Pneumococcal Vaccination: No Review Of Systems ENT: Positive for: Throat Pain (right sided), Other (right epistaxis) Cardiovascular: Negative for: Chest Pain, Palpitations Neurological: Positive for: Dizziness Physical Exam - Physical Exam Appears: No Acute Distress, Other (BP 130/80) Nose: No Epistaxis, Other (no active epistaxis) Throat: Normal, Erythema, No Exudate, Other (swelling and right submandibular node <1 cm mobile; local tenderness and reproducable pain) Chest: Symmetrical Cardiovascular: Rhythm Regular, No Murmur Respiratory: Normal Breath Sounds, No Rales, No Rhonchi, No Wheezing Gastrointestinal/Abdominal: Soft, No Tenderness Extremity: Normal ROM Neurological/Psych: Oriented x3, Normal Speech, Normal Cognition ED Course And Treatment - Laboratory Results Result Diagrams: 05/16/17 11:51 05/16/17 11:51 O2 Sat by Pulse Oximetry: 99 (Room air) Pulse Ox Interpretation: Normal Progress - Re-Evaluation Re-evaluation Note: 05/16/17 12:38 NO RECUR SX SINCE PRIOR EVAL. VSS. FU PMD - Data Reviewed Data Reviewed: Lab, Diagnostic imaging, EKG, Old records Medical Decision Making Medical Decision Making: Admission 02/2017 for TIA, MRI, carotid, echo reports reviewed. Plan: * EKG * BMP * CBC Disposition Counseled Patient/Family Regarding: Studies Performed, Diagnosis, Need For Followup - Disposition Referrals: YOUR,PMD [Other] Disposition: HOME/ ROUTINE Disposition Time: 12:39 Condition: IMPROVED Instructions: Lymphadenopathy (ED), Hypokalemia (ED) Forms: [facility] (Latvian) - Clinical Impression Clinical Impression: Lymphadenitis, acute, Hypokalemia - Scribe Statement The provider has reviewed the documentation as recorded by the Scribzuri Zepeda All medical record entries made by the Scribe were at my direction and personally dictated by me. I have reviewed the chart and agree that the record accurately reflects my personal performance of the history, physical exam, medical decision making, and the department course for this patient. I have also personally directed, reviewed, and agree with the discharge instructions and disposition.
[2017-05-16 11:55] LABS: HEMATOCRIT 38.3 % (34.0-47.0); MEAN CELL VOLUME 73.8 fL (81.0-99.0); MEAN CORPUSCULAR HEMOGLOBIN 23.6 pg (27.0-31.0); MEAN PLATELET VOLUME 8.5 fL (7.2-11.7); RED CELL DISTRIBUTION WIDTH 14.3 % (11.5-14.5); WHITE BLOOD COUNT 3.6 K/uL (4.8-10.8)
[2017-05-16 12:09] LABS: BLOOD UREA NITROGEN 15 mg/dL (7-17); CALCIUM 8.4 mg/dl (8.6-10.4); CARBON DIOXIDE 29 mmol/L (22-30); CHLORIDE 97 mmol/L (98-107); GFR AFRICAN-AMERICAN > 60; GLUCOSE,RANDOM 91 mg/dL (65-105); POTASSIUM 3.1 mmol/L (3.6-5.2); SODIUM 135 mmol/L (132-148)
[2017-05-16] MEDS ORDERED: Potassium Chloride 20 mEq/15 ml LIQ UD PO STA (12:11)
[2017-05-16] MEDS ORDERED: Potassium Chloride 20 mEq ER Tab PO ONE (12:26)
[2017-05-16 12:51] VITALS: BP 144/80; PULSE 63; RESP 20; TEMP 97.7
--- NOTE | 2017-05-18 17:42 | CARD ---
APPROVED REPORT EKG Measurement Heart [id number] <Conclusion> Sinus rhythm with sinus arrhythmia with 1st degree AV block Moderate voltage criteria for LVH, may be normal variant Borderline ECG
== END 2017-05-16 12:54 | disposition home or self-care (01) ==
LOC: C.ER 10:24
DX: E87.6 Hypokalemia (principal); L04.9 Acute lymphadenitis, unspecified; E78.00 Pure hypercholesterolemia, unspecified; I10 Essential (primary) hypertension
CPT/HCPCS: 80048; 85027; 96374; 99285; J1885

== ENCOUNTER 2017-11-21 12:16 | Emergency (ER) | payer OTHER ==
[2017-11-21 12:16] VITALS: BMI 27.4
[2017-11-21 12:28] VITALS: RESP 18
[2017-11-21 13:34] LABS: BASO # 0.1 K/uL (0.0-0.2); BASO % 1.1 % (0.0-2.0); EOS # 0.3 K/uL (0.0-0.7); EOS % 6.2 % (0.0-4.0); HEMOGLOBIN 11.8 g/dL (11.0-16.0); LYMPH # 1.7 K/uL (1.0-4.3); LYMPH % 33.5 % (20.0-40.0); MEAN CELL VOLUME 74.2 fL (81.0-99.0); MEAN CORPUSCULAR HEMOGLOBIN 24.3 pg (27.0-31.0); MEAN CORPUSCULAR HGB CONC 32.7 g/dL (33.0-37.0); MEAN PLATELET VOLUME 8.4 fL (7.2-11.7); MONO # 0.2 K/uL (0.0-0.8); MONO % 4.9 % (0.0-10.0); NEUT # 2.8 K/uL (1.8-7.0); NEUT % 54.3 % (50.0-75.0); NRBC % 0.2 % (0.0-2.0); RBC 4.85 Mil/uL (3.80-5.20); RED CELL DISTRIBUTION WIDTH 14.9 % (11.5-14.5); WHITE BLOOD COUNT 5.1 K/uL (4.8-10.8)
[2017-11-21] MEDS ORDERED: Iohexol 240 (50 ml) PO ONE (13:45)
[2017-11-21] MEDS ORDERED: Iohexol 240 (50 ml) ONE (13:49)
[2017-11-21 13:55] LABS: SQUAMOUS EPITHIAL 2 /hpf (0-5); URINE BACTERIA RARE (<OCC); URINE BILIRUBIN NEGATIVE (NEGATIVE); URINE BLOOD NEGATIVE (NEGATIVE); URINE CLARITY Hazy (Clear); URINE COLOR Yellow (YELLOW); URINE GLUCOSE (UA) NORMAL (Normal); URINE LEUKOCYTE ESTERASE 1+ Leu/uL (Negative); URINE PROTEIN NEGATIVE (NEGATIVE); URINE UROBILINOGEN NORMAL mg/dL (0.2-1.0)
[2017-11-21 14:10] LABS: ALB/GLOB RATIO 1.1 (1.0-2.1); ALBUMIN 4.1 g/dL (3.5-5.0); ALT/SGPT 28 U/L (9-52); AST/SGOT 35 U/L (14-36); BLOOD UREA NITROGEN 15 mg/dL (7-17); GFR AFRICAN-AMERICAN > 60; GFR NON-AFRICAN AMERICAN > 60; LIPASE 86 U/L (23-300)
[2017-11-21] MEDS ORDERED: Iohexol 300 100 ML IJ ONE (15:19)
--- NOTE | 2017-11-21 16:11 | CT ---
PROCEDURE: CT Abdomen and Pelvis with contrast HISTORY: Abdominal pain COMPARISON: 07/15/2017 TECHNIQUE: CT scan of the abdomen and pelvis was performed after administration of intravenous contrast. Oral contrast was administered. Coronal and sagittal reformatted images were obtained. Contrast dose: 100 mL Omnipaque 300 Radiation dose: Total exam DLP = 754.86 mGy-cm. This CT exam was performed using one or more of the following dose reduction techniques: Automated exposure control, adjustment of the mA and/or kV according to patient size, and/or use of iterative reconstruction technique. FINDINGS: LOWER THORAX: There is a stable 5 mm subpleural nodule in the right lower lobe. There is a stable 5 mm nodule in the left lower lobe and stable 4 mm nodule in the left lower lobe. There is linear atelectasis/scarring in the left lower lobe. LIVER: Normal in size with diffuse fatty infiltration. No gross lesion or ductal dilatation. GALLBLADDER AND BILE DUCTS: Not visualized and may be surgically absent. PANCREAS: Normal in size with homogeneous enhancement. No gross lesion or ductal dilatation. SPLEEN: Normal in size and appearance. ADRENALS: No discrete nodule. KIDNEYS AND URETERS: Normal in size with homogeneous enhancement. There is mild fullness in both collecting systems. No solid mass. VASCULATURE: No aortic aneurysm. BOWEL: The small bowel loops are normal in caliber. There is moderate amount of stool in the colon. No evidence of bowel dilatation. There is apparent mild mural thickening in the sigmoid colon and rectum. No obstruction. APPENDIX: Normal appendix. PERITONEUM: Unremarkable. No free fluid. No free air. LYMPH NODES: Unremarkable. No enlarged lymph nodes. BLADDER: There is apparent mild mural thickening in the urinary bladder wall. REPRODUCTIVE: The uterus is surgically absent BONES: No acute fracture. Within normal limits for the patient's age OTHER FINDINGS: None. IMPRESSION: 1. Apparent mild mural thickening in the sigmoid colon and rectum could be related to underdistention however but nonspecific infectious/ inflammatory colitis/proctitis is also a consideration. Clinical follow-up is advised. 2. Mild fullness in both collecting systems and apparent mild mural thickening of the urinary bladder wall which is nonspecific and could be related to underdistention however cystitis is also a consideration. Please correlate with urine analysis.
--- NOTE | 2017-11-21 16:44 | C.PDOC ---
History Of Present Illness 62 y/o female presents to the ER complaining of abdominal pain which has been present for the past 5 months. Patient states that she had a negative colonoscopy and she was informed that her symptoms were due to constipation. Patient denies having nausea, vomiting, diarrhea, urinary symptoms, fever, and chills. Time Seen by Provider: 11/21/17 12:53 Chief Complaint (Nursing): Abdominal Pain History Per: Patient History/Exam Limitations: no limitations Onset/Duration Of Symptoms: Days Current Symptoms Are (Timing): Still Present Severity: Moderate Associated Symptoms: denies: Fever, Chills, Nausea, Vomiting, Diarrhea, Urinary Symptoms Past Medical History Reviewed: Historical Data, Nursing Documentation, Vital Signs Vital Signs: Last Vital Signs Temp 98 F 11/21/17 17:04 Pulse 76 11/21/17 17:04 Resp 18 11/21/17 17:04 BP 116/72 11/21/17 17:04 Pulse Ox 100 11/21/17 17:14 - Medical History PMH: Anxiety, Arthritis, Asthma (NEWLY DIAGNOSED), Cardia Arrhythmia, HTN, Hypercholesterolemia Denies: Chronic Kidney Disease Surgical History: Cholecystectomy, Endoscopy - [facility] Procedures COLONOSCOPY (02/01/15) LAPAROSCOPIC CHOLECYSTECTOMY (12/22/14) LAPAROSCOPIC ROBOTIC ASSISTED PROCEDURE (12/22/14) Family History: States: No Known Family Hx - Social History Hx Tobacco Use: No Hx Alcohol Use: Yes Hx Substance Use: No - Immunization History Hx Tetanus Toxoid Vaccination: No Hx Influenza Vaccination: No Hx Pneumococcal Vaccination: No Review Of Systems Except As Marked, All Systems Reviewed And Found Negative. Constitutional: Negative for: Fever, Chills Gastrointestinal: Positive for: Abdominal Pain. Negative for: Nausea, Vomiting , Diarrhea Genitourinary: Negative for: Dysuria, Hematuria Physical Exam - Physical Exam Appears: Non-toxic, No Acute Distress Skin: Normal Color, Warm, Dry Head: Atraumatic, Normacephalic Eye(s): bilateral: Normal Inspection Nose: Normal Oral Mucosa: Moist Neck: Supple Chest: Symmetrical Cardiovascular: Rhythm Regular Respiratory: Normal Breath Sounds, No Rales, No Rhonchi, No Wheezing Gastrointestinal/Abdominal: Soft, Tenderness (minimal diffuse tenderness), No Guarding, No Rebound Neurological/Psych: Oriented x3, Normal Speech ED Course And Treatment - Laboratory Results Result Diagrams: 11/21/17 13:29 11/21/17 13:29 O2 Sat by Pulse Oximetry: 100 (RA) Pulse Ox Interpretation: Normal - CT Scan/US CT- Abd & Pelv. Other Rad Studies (CT/US): Read By Radiologist, Radiology Report Reviewed CT/US Interpretation: PROCEDURE: CT Abdomen and Pelvis with contrast. HISTORY : Abdominal pain. COMPARISON: 07/15/2017. TECHNIQUE: CT scan of the abdomen and pelvis was performed after administration of intravenous contrast. Oral contrast was administered. Coronal and sagittal reformatted images were obtained. Contrast dose: 100 mL Omnipaque 300. Radiation dose: Total exam DLP = 754.86 mGy-cm. This CT exam was performed using one or more of the following dose reduction techniques: Automated exposure control, adjustment of the mA and/or kV according to patient size, and/or use of iterative reconstruction technique. FINDINGS: LOWER THORAX: There is a stable 5 mm subpleural nodule in the right lower lobe. There is a stable 5 mm nodule in the left lower lobe and stable 4 mm nodule in the left lower lobe. There is linear atelectasis/scarring in the left lower lobe. LIVER: Normal in size with diffuse fatty infiltration. No gross lesion or ductal dilatation. GALLBLADDER AND BILE DUCTS: Not visualized and may be surgically absent. PANCREAS: Normal in size with homogeneous enhancement. No gross lesion or ductal dilatation. SPLEEN: Normal in size and appearance. ADRENALS: No discrete nodule. KIDNEYS AND URETERS: Normal in size with homogeneous enhancement. There is mild fullness in both collecting systems. No solid mass. VASCULATURE: No aortic aneurysm. BOWEL: The small bowel loops are normal in caliber. There is moderate amount of stool in the colon. No evidence of bowel dilatation. There is apparent mild mural thickening in the sigmoid colon and rectum. No obstruction. APPENDIX: Normal appendix. PERITONEUM: Unremarkable. No free fluid. No free air. LYMPH NODES: Unremarkable. No enlarged lymph nodes. BLADDER: There is apparent mild mural thickening in the urinary bladder wall. REPRODUCTIVE: The uterus is surgically absent. BONES: No acute fracture. Within normal limits for the patient's age. OTHER FINDINGS: None. IMPRESSION: 1. Apparent mild mural thickening in the sigmoid colon and rectum could be related to underdistention however but nonspecific infectious/ inflammatory colitis/proctitis is also a consideration. Clinical follow-up is advised. 2. Mild fullness in both collecting systems and apparent mild mural thickening of the urinary bladder wall which is nonspecific and could be related to underdistention however cystitis is also a consideration. Please correlate with urine analysis. Medical Decision Making Medical Decision Making: Assessment: Abdominal Pain Plan: --Labs --UA --CT - Abd & Pelv. --Cipro PO --Flagyl PO -- Omnipaque PO --Toradol IV Updates: On re-evaluation, patient feels better. Patient has been discharged and instructed to follow up with GI in 2 days. Disposition Counseled Patient/Family Regarding: Studies Performed, Diagnosis - Disposition Referrals: Judah Mock MD [Staff Provider] - Disposition: HOME/ ROUTINE Disposition Time: 16:42 Condition: STABLE Additional Instructions: follow up with gi doctor in 2 days call to make an appointment take medications as prescribed return to ER if symptoms worsens or progress Prescriptions: Ciprofloxacin HCl [Cipro] 500 mg PO BID #20 tab Famotidine [Pepcid] 20 mg PO BID #20 tab Metronidazole [Flagyl] 500 mg PO BID #20 tablet Naproxen [Naprosyn] 500 mg PO BID PRN #16 tab PRN Reason: Pain, Moderate (4-7) Instructions: Acute Abdomen (Belly Pain), Adult (DC) Forms: [facility] (Eth[place]ian), General Discharge Instructions - Clinical Impression Clinical Impression: Abdominal pain - Scribe Statement The provider has reviewed the documentation as recorded by the Zuriibe Kassie Esqueda Provider Attestation: All medical record entries made by the Scribe were at my direction and personally dictated by me. I have reviewed the chart and agree that the record accurately reflects my personal performance of the history, physical exam, medical decision making, and the department course for this patient. I have also personally directed, reviewed, and agree with the discharge instructions and disposition.
[2017-11-21 17:05] VITALS: BP 116/72; PULSE 76; TEMP 98
[2017-11-21 17:09] VITALS: O2SAT 100
== END 2017-11-21 17:05 | disposition home or self-care (01) ==
LOC: C.ER 12:16
DX: R10.9 Unspecified abdominal pain (principal); I10 Essential (primary) hypertension; E78.00 Pure hypercholesterolemia, unspecified; F41.9 Anxiety disorder, unspecified
CPT/HCPCS: 74177; 80053; 81001; 83690; 84484; 85025; 96374; 99284; J1885; Q9966; Q9967

== ENCOUNTER 2018-04-23 14:30 | Observation (INO) | payer BC, MEDICAID, OTHER ==
[2018-04-23 14:58] VITALS: BMI 24.2
--- NOTE | 2018-04-23 15:07 | C.PDOC ---
History Of Present Illness 62 y/o female with history of HTN presents to ED with c/o right facial numbness, dizziness, sob and reproducible chest pressure with palpation for 2 days. Patient states today she had "loss of vision" which resolved on its own. Patient admits to nausea and denies fever, chills, vomiting or any other complaints at this time. Time Seen by Provider: 04/23/18 14:49 Chief Complaint (Nursing): Dizziness/Lightheaded History Per: Patient History/Exam Limitations: no limitations Onset/Duration Of Symptoms: Days Current Symptoms Are (Timing): Still Present Past Medical History Reviewed: Historical Data, Nursing Documentation, Vital Signs - Medical History PMH: Anxiety, Arthritis, Asthma (NEWLY DIAGNOSED), Cardia Arrhythmia, HTN, Hypercholesterolemia Surgical History: Cholecystectomy, Endoscopy - [facility] Procedures COLONOSCOPY (02/01/15) LAPAROSCOPIC CHOLECYSTECTOMY (12/22/14) LAPAROSCOPIC ROBOTIC ASSISTED PROCEDURE (12/22/14) Family History: States: No Known Family Hx - Social History Hx Tobacco Use: No Hx Alcohol Use: Yes Hx Substance Use: No - Immunization History Hx Tetanus Toxoid Vaccination: No Hx Influenza Vaccination: No Hx Pneumococcal Vaccination: No Review Of Systems Cardiovascular: Positive for: Chest Pain Respiratory: Positive for: Shortness of Breath. Negative for: Cough Gastrointestinal: Positive for: Nausea. Negative for: Vomiting, Diarrhea Neurological: Positive for: Numbness (facial), Headache, Dizziness. Negative for: Weakness Physical Exam - Physical Exam Appears: Non-toxic, No Acute Distress Skin: Warm, Dry, No Rash Head: Atraumatic, Normacephalic Eye(s): bilateral: Normal Inspection Oral Mucosa: Moist Neck: Normal ROM, Supple Cardiovascular: Rhythm Regular Respiratory: Normal Breath Sounds, No Rales, No Rhonchi, No Wheezing Gastrointestinal/Abdominal: Soft, No Tenderness, No Guarding, No Rebound Extremity: Normal ROM, No Pedal Edema, Capillary Refill (<2 seconds) Neurological/Psych: Oriented x3, Normal Speech, Normal Cognition ED Course And Treatment - Laboratory Results Result Diagrams: 04/23/18 15:05 04/23/18 15:05 O2 Sat by Pulse Oximetry: 100 (RA) Pulse Ox Interpretation: Normal NIHSS Stroke Scale 2 - Date/Time Evaluation Performed Date Performed: 04/23/18 Time Performed: 02:40 When Was NIHSS Performed: Baseline - How Severe is the Stroke Level of Consciousness: 0=Alert LOC to Questions: 0=Both comments correct LOC to commands: 0=Obeys both correctly Best Gaze: 0=Normal Visual: 0=No visual loss Facial: 0=Normal Motor Arm - Left: 0=No drift Motor Arm - Right: 0=No drift Motor Leg - Left: 0=No drift Motor Leg - Right: 0=No drift Limb Ataxia: 0=Absent Sensory: 0=Normal Best Language: 0=No aphasia Dysarthia: 0=Normal articulation Extinction & Inattention (Neglect): 0=Normal, no object Score: 0 rTPA Inclusion/Exclusion - Refusal of Treatment Patient Refused Treatment: No - Inclusion Criteria for Altepase Patient is 18 years or Older: Yes The Clinical Diagnosis of Ischemic Stroke That is Causing a Potentially Disabling Neurological Deficit: No Time of Onset is Well Established to be Less Than 270 Minute Before Treatment Would Begin: No Risk/Benefit Discussed With Patient/Family Member Present: No - Exclusion Criteria for Altepase Uncontrolled Hypertension at Time of Treatment (Systolic BP above 185 or Diastolic BP above 110 mmHg): No Active Internal Bleeding: No Known Bleeding Diathesis Including but Not Limited to: Platelets Below 100,000/mm,PTT Above 40 sec After Heparin Use, Current Use of Oral Anitcoagulant With INR Greater Than 1.7 or PT Greater Than 15 secs: No Evidence of an Intracranial Hemorrhage: No Evidence of Major Acute Infarct With Signs Greater Than 1/3 MCA Territory: No Suspicion of Subarachnoid Hemorrhage on Pretreatment Evaluation Even if CT Head Negative For Hemorrhage: No - Warning to TPA With Conditions Following Conditions Weighed Against Anticipated Benefit: No Condition: Stroke Serevity Too Mild Medical Decision Making Medical Decision Making: Plan: CTA HEAD NECK, CXR, EKG, Blood work, UA ordered [place]: Spoke with Dr. Gama for neuro consult and request patient have aspirin and MRI with admission. Spoke to Dr. Gomez discussed case, okay for patient to be admitted to hospital Spoke with Hospitalist, patient admitted under their service. Disposition Discussed With : Noris Claudio Doctor Will See Patient In The: Hospital Counseled Patient/Family Regarding: Studies Performed, Diagnosis - Disposition Disposition: HOSPITALIZED Disposition Time: 15:48 Condition: GUARDED Forms: [facility] (Armenian) - Clinical Impression Clinical Impression: TIA (transient ischemic attack) - Scribe Statement The provider has reviewed the documentation as recorded by the Scribe Shira Parrata All medical record entries made by the Araceli were at my direction and personally dictated by me. I have reviewed the chart and agree that the record accurately reflects my personal performance of the history, physical exam, medical decision making, and the department course for this patient. I have also personally directed, reviewed, and agree with the discharge instructions and disposition. Decision To Admit - Pt Status Changed To: Hospital Disposition Of: Observation - InPatient: Physician Admission Certification: I certify that this patient requires 2 or more midnights of care for the following reason:: facial numbness, cp, palpitations - . Bed Request Type: Telemetry Patient Diagnosis: TIA (transient ischemic attack)
[2018-04-23 15:10] LABS: BASO # 0.1 K/uL (0.0-0.2); BASO % 1.1 % (0.0-2.0); EOS # 0.2 K/uL (0.0-0.7); EOS % 4.2 % (0.0-4.0); HEMOGLOBIN 12.6 g/dL (11.0-16.0); LYMPH # 1.4 K/uL (1.0-4.3); LYMPH % 25.6 % (20.0-40.0); MEAN CELL VOLUME 73.6 fL (81.0-99.0); MEAN CORPUSCULAR HEMOGLOBIN 23.4 pg (27.0-31.0); MEAN CORPUSCULAR HGB CONC 31.8 g/dL (33.0-37.0); MEAN PLATELET VOLUME 8.4 fL (7.2-11.7); MONO # 0.5 K/uL (0.0-0.8); MONO % 8.9 % (0.0-10.0); NEUT # 3.4 K/uL (1.8-7.0); NEUT % 60.2 % (50.0-75.0); RBC 5.4 Mil/uL (3.80-5.20); RED CELL DISTRIBUTION WIDTH 14.1 % (11.5-14.5); WHITE BLOOD COUNT 5.7 K/uL (4.8-10.8)
--- NOTE | 2018-04-23 15:24 | CT ---
Date of service: 04/23/2018 PROCEDURE: CT HEAD WITHOUT CONTRAST. HISTORY: Code Stroke COMPARISON: 03/16/2017. TECHNIQUE: Axial computed tomography images were obtained through the head/brain without intravenous contrast. Radiation dose: Total exam DLP = 1071.67 mGy-cm. This CT exam was performed using one or more of the following dose reduction techniques: Automated exposure control, adjustment of the mA and/or kV according to patient size, and/or use of iterative reconstruction technique. FINDINGS: HEMORRHAGE: No intracranial hemorrhage. BRAIN: There is a focal low-attenuation area in the left frontal subcortical white matter. There is no mass, mass effect or abnormal extra-axial fluid collection. The midline sagittal structures are normal.There are coarse atherosclerotic calcifications in the cavernous carotid arteries. VENTRICLES: There is mild age-related global parenchymal volume loss and proportionate enlargement of the ventricles and cortical sulci. There is nonspecific coarse calcification along the right tentorium. CALVARIUM: The skull base and calvarium are normal. PARANASAL SINUSES: There is mild mucoperiosteal thickening in the maxillary and ethmoid sinuses. The remaining included paranasal sinuses are clear. MASTOID AIR CELLS: Predominantly clear. OTHER FINDINGS: The globes are symmetric and normal in appearance. IMPRESSION: Focal hypoattenuation in the left parietal subcortical white matter could represent an age indeterminate infarction. If there is a persistent focal neurologic deficit and an ongoing clinical concern for acute infarction, an MRI of the brain without intravenous contrast would be a more sensitive modality for evaluation of hyperacute/acute ischemic infarction. Mild age-related global parenchymal volume loss.
[2018-04-23 15:25] LABS: INR 1.2; PROTHROMBIN TIME 13.3 SECONDS (9.7-12.2)
[2018-04-23] MEDS ORDERED: Iodixanol 320 mg/ml 150 ml Bottle IV ONE (15:30)
[2018-04-23 15:32] LABS: ALB/GLOB RATIO 1.4 (1.0-2.1); ALT/SGPT 25 U/L (9-52); AST/SGOT 31 U/L (14-36); BLOOD UREA NITROGEN 14 mg/dL (7-17); CALCIUM 9.8 mg/dl (8.6-10.4); GFR NON-AFRICAN AMERICAN > 60
--- NOTE | 2018-04-23 15:42 | CT ---
PROCEDURE: CTA HEAD AND NECK WITH CONTRAST HISTORY: face numbness COMPARISON: None available. TECHNIQUE: Initial noncontrast head CT was performed. Subsequently, CT angiogram of the head and neck were performed after the intravenous administration of 80 mL of Omnipaque 350. Contiguous 1.5mm thick images were obtained in the axial plane of the neck. 2-D coronal and sagittal MPR images were obtained. Imaging postprocessing was performed with 3-D images also obtained. A delayed contrast head CT was also obtained. This CT exam was performed using one or more of the following dose reduction techniques: Automated exposure control, adjustment of the mA and/or kV according to patient size, and/or use of iterative reconstruction technique. Contrast dose: 100 mL Omnipaque 300 Radiation dose: Total exam DLP = 533.17 mGy-cm. FINDINGS: HEAD: Right: The intracranial internal carotid artery, and anterior and middle cerebral arteries are widely patent. Left: The intracranial internal carotid artery, and anterior and middle cerebral arteries are widely patent. The A1 segment is hypoplastic, an anatomic variant. Posterior circulation: The visualized intracranial vertebral arteries, basilar artery and posterior cerebral arteries are widely patent. There is no endoluminal filling defect to suggest thrombus. There is no intracranial saccular aneurysm. NECK: There is a three vessel aortic arch. There is no stenosis at the origins of the great vessels at the level of the aortic arch. No atherosclerotic calcification or mural plaque present. Right Carotid: On the right, the common carotid, internal carotid and external carotid arteries are widely patent. There is no hemodynamically significant stenosis in the internal carotid artery by NASCET criteria. Left Carotid: On the left, the common carotid, internal carotid and external carotid arteries are widely patent. There is no hemodynamically significant stenosis in the internal carotid artery by NASCET criteria. The vertebral arteries are widely patent. The vertebral artery is hypoplastic, an anatomic variant. The visualized soft tissues of the neck are normal. The visualized brain and cervical spine are within normal limits. The lung apices are clear. IMPRESSION: 1. No evidence of endoluminal thrombus,occlusion or definite significant stenosis in the intracranial arteries. 2. No evidence of hemodynamically significant stenosis in the internal carotid arteries. 3. Patent bilateral vertebral arteries.
[2018-04-23 15:44] LABS: B-TYPE NATRIURETIC PEPTIDE 99.8 pg/mL (0-900)
--- NOTE | 2018-04-23 15:48 | RAD ---
HISTORY: Code Stroke COMPARISON: Chest x-ray performed 03/16/17 TECHNIQUE: Chest, one view. FINDINGS: LUNGS: No focal consolidation. Please note that chest x-ray has limited sensitivity for the detection of pulmonary masses. PLEURA: No significant pleural effusion identified. No definite pneumothorax . CARDIOVASCULAR: The cardiomediastinal silhouette appears within normal limits of size. No significant atherosclerotic calcification present. OSSEOUS STRUCTURES: No acute osseous abnormality identified. VISUALIZED UPPER ABDOMEN: Unremarkable. OTHER FINDINGS: None. IMPRESSION: No acute findings identified.
[2018-04-23] MEDS: Sodium Chloride 0.9% 1,000 ML IV SCH (15:51)
--- NOTE | 2018-04-23 16:17 | CP.PCM.HP ---
Past Patient History - Infectious Disease Hx of Infectious Diseases: None - Past Medical History & Family History Past Medical History?: Yes - Past Social History Smoking Status: Never Smoked - CARDIAC Hx Cardia Arrhythmia: Yes Hx Hypercholesterolemia: Yes Hx Hypertension: Yes - PULMONARY Hx Asthma: Yes (NEWLY DIAGNOSED) - NEUROLOGICAL Hx Neurological Disorder: Yes Hx Vertigo: Yes - HEENT Hx HEENT Problems: No - RENAL Hx Chronic Kidney Disease: No - ENDOCRINE/METABOLIC Hx Endocrine Disorders: No - HEMATOLOGICAL/ONCOLOGICAL Hx Blood Disorders: No - INTEGUMENTARY Hx Dermatological Problems: No - MUSCULOSKELETAL/RHEUMATOLOGICAL Hx Arthritis: Yes - GASTROINTESTINAL Hx Gastrointestinal Disorders: No - GENITOURINARY/GYNECOLOGICAL Hx Genitourinary Disorders: No - PSYCHIATRIC Hx Anxiety: Yes Hx Substance Use: No - SURGICAL HISTORY Hx Cholecystectomy: Yes - ANESTHESIA Hx Anesthesia: Yes Hx Anesthesia Reactions: No Hx Malignant Hyperthermia: No Meds Allergies/Adverse Reactions: Allergies Allergy/AdvReac Type Severity Reaction Status Date / Time codeine Allergy DIZZINESS Verified 04/23/18 15:39 Results - Vital Signs Recent Vital Signs: Last Vital Signs Temp 97.8 F 04/23/18 14:54 Pulse 83 04/23/18 14:54 Resp 23 04/23/18 14:54 BP 173/71 H 04/23/18 14:54 Pulse Ox 100 04/23/18 15:49 - Labs Result Diagrams: 04/23/18 15:05 04/23/18 15:05 Labs: Laboratory Results - last 24 hr 04/23/18 04/23/18 04/23/18 14:42 15:05 15:05 WBC 5.7 RBC 5.40 H Hgb 12.6 Hct 39.7 MCV 73.6 L MCH 23.4 L MCHC 31.8 L RDW 14.1 Plt Count 235 MPV 8.4 Neut % (Auto) 60.2 Lymph % (Auto) 25.6 [place] % (Auto) 8.9 Eos % (Auto) 4.2 H Baso % (Auto) 1.1 Neut # (Auto) 3.4 Lymph # (Auto) 1.4 [place] # (Auto) 0.5 Eos # (Auto) 0.2 Baso # (Auto) 0.1 PT 13.3 H INR 1.2 APTT 42 H Sodium Potassium Chloride Carbon Dioxide Anion Gap BUN Creatinine Est GFR ( Amer) Est GFR (Non-Af Amer) POC Glucose (mg/dL) 99 Random Glucose Calcium Total Bilirubin AST ALT Alkaline Phosphatase Troponin I NT-Pro-B Natriuret Pep Total Protein Albumin Globulin Albumin/Globulin Ratio Blood Type Antibody Screen 04/23/18 04/23/18 15:05 15:05 WBC RBC Hgb Hct MCV MCH MCHC RDW Plt Count MPV Neut % (Auto) Lymph % (Auto) [place] % (Auto) Eos % (Auto) Baso % (Auto) Neut # (Auto) Lymph # (Auto) [place] # (Auto) Eos # (Auto) Baso # (Auto) PT INR APTT Sodium 143 Potassium 3.5 L Chloride 100 Carbon Dioxide 33 H Anion Gap 14 BUN 14 Creatinine 0.7 Est GFR ( Amer) > 60 Est GFR (Non-Af Amer) > 60 POC Glucose (mg/dL) Random Glucose 84 Calcium 9.8 Total Bilirubin 0.5 AST 31 ALT 25 Alkaline Phosphatase 75 Troponin I < 0.0120 NT-Pro-B Natriuret Pep 99.8 Total Protein 8.7 H Albumin 5.0 D Globulin 3.7 Albumin/Globulin Ratio 1.4 Blood Type A POSITIVE Antibody Screen Negative
--- NOTE | 2018-04-23 16:22 | CP.PCM.HP ---
History of Present Illness - History of Present Illness History of Present Illness: CC - CODE STROKE, "facial numbness" HPI - 62 y/o female with history of HTN presents to ED with c/o right facial numbness, dizziness, sob and reproducible chest pressure with palpation for 2 days. Pt reports prior history of this numbness/tingling last year, twice. Pt also reports a heaviness in the head. She reports dizziness that started 2 days ago, specifically that she was spinning. She reports losing balance and falling twice, but denies head trauma or loss of consciousness. Patient states this morning she had blurry vision which resolved on its own. Patient admits to nausea and denies fever, chills, vomiting or any other complaints at this time. She reports a long-standing history of headaches, which she typically takes tylenol for to help alleviate. Pt reports taking tylenol at home which did not help today. Pt reports associated nausea, shortness of breath, palpitations, abdominal pain (chronic) and constipation (chronic). She also reports memory loss for the past few months, that has been progressively worsening. She denies any vomiting, diarrhea, dysuria. PMHx - Anxiety, Arthritis, Asthma (NEWLY DIAGNOSED), Cardia Arrhythmia, HTN, Hypercholesterolemia Meds - Norvasc 5mg PO daily. Metoprolol 25mg PO daily, Losartan/HcTz 100/25 PO daily, Pepcid 20mg PO BID, Aspirin 81mg PO daily Surg - Cholecystectomy, endoscopy Allergies - codeine Social hx - Admits to alcohol use, denies tobacco or drug use PMD - Dr. Jason Meléndez Code status - full code Present on Admission - Present on Admission Any Indicators Present on Admission: No Past Patient History - Infectious Disease Hx of Infectious Diseases: None - Past Medical History & Family History Past Medical History?: Yes - Past Social History Smoking Status: Never Smoked - CARDIAC Hx Cardia Arrhythmia: Yes Hx Hypercholesterolemia: Yes Hx Hypertension: Yes - PULMONARY Hx Asthma: Yes (NEWLY DIAGNOSED) - NEUROLOGICAL Hx Neurological Disorder: Yes Hx Vertigo: Yes - HEENT Hx HEENT Problems: No - RENAL Hx Chronic Kidney Disease: No - ENDOCRINE/METABOLIC Hx Endocrine Disorders: No - HEMATOLOGICAL/ONCOLOGICAL Hx Blood Disorders: No - INTEGUMENTARY Hx Dermatological Problems: No - MUSCULOSKELETAL/RHEUMATOLOGICAL Hx Arthritis: Yes - GASTROINTESTINAL Hx Gastrointestinal Disorders: No - GENITOURINARY/GYNECOLOGICAL Hx Genitourinary Disorders: No - PSYCHIATRIC Hx Anxiety: Yes Hx Substance Use: No - SURGICAL HISTORY Hx Cholecystectomy: Yes - ANESTHESIA Hx Anesthesia: Yes Hx Anesthesia Reactions: No Hx Malignant Hyperthermia: No Meds Allergies/Adverse Reactions: Allergies Allergy/AdvReac Type Severity Reaction Status Date / Time codeine Allergy DIZZINESS Verified 04/23/18 15:39 Physical Exam - Constitutional Appears: Well, No Acute Distress - Head Exam Head Exam: ATRAUMATIC, NORMOCEPHALIC - Eye Exam Eye Exam: EOMI, Normal appearance, PERRL Pupil Exam: NORMAL ACCOMODATION - ENT Exam ENT Exam: Mucous Membranes Moist, Normal Exam - Neck Exam Neck exam: Positive for: Normal Inspection - Respiratory Exam Respiratory Exam: Clear to Auscultation Bilateral, NORMAL BREATHING PATTERN. absent: Rales, Rhonchi, Wheezes, Respiratory Distress - Cardiovascular Exam Cardiovascular Exam: Irregular Rhythm, +S1, +S2. absent: Gallop, Rubs, Systolic Murmur - GI/Abdominal Exam GI & Abdominal Exam: Normal Bowel Sounds, Soft. absent: Distended, Firm, Tenderness - Extremities Exam Extremities exam: Positive for: normal inspection. Negative for: pedal edema - Back Exam Back exam: NORMAL INSPECTION - Neurological Exam Neurological exam: Alert, CN II-XII Intact, Oriented x3 - Expanded Neurological Exam Expanded Cranial nerves: Facial Sensation: Normal, Tongue Deviation: Normal Upper motor neuron: Babinski Sign: Normal Sensory exam: Lower Extremity Light Touch: Normal, Upper Extremity Light Touch: Normal Neuro motor strength exam: Left Upper Extremity: 5, Right Upper Extremity: 5, Left Lower Extremity: 5, Right Lower Extremity: 5 - Psychiatric Exam Psychiatric exam: Anxious - Skin Skin Exam: Normal Color Results - Vital Signs Recent Vital Signs: Last Vital Signs Temp 97.8 F 04/23/18 14:54 Pulse 77 04/23/18 16:12 Resp 16 04/23/18 16:12 BP 124/81 04/23/18 16:12 Pulse Ox 97 04/23/18 16:12 - Labs Result Diagrams: 04/23/18 15:05 04/23/18 15:05 Labs: Laboratory Results - last 24 hr 04/23/18 04/23/18 04/23/18 14:42 15:05 15:05 WBC 5.7 RBC 5.40 H Hgb 12.6 Hct 39.7 MCV 73.6 L MCH 23.4 L MCHC 31.8 L RDW 14.1 Plt Count 235 MPV 8.4 Neut % (Auto) 60.2 Lymph % (Auto) 25.6 [place] % (Auto) 8.9 Eos % (Auto) 4.2 H Baso % (Auto) 1.1 Neut # (Auto) 3.4 Lymph # (Auto) 1.4 [place] # (Auto) 0.5 Eos # (Auto) 0.2 Baso # (Auto) 0.1 PT 13.3 H INR 1.2 APTT 42 H Sodium Potassium Chloride Carbon Dioxide Anion Gap BUN Creatinine Est GFR ( Amer) Est GFR (Non-Af Amer) POC Glucose (mg/dL) 99 Random Glucose Calcium Total Bilirubin AST ALT Alkaline Phosphatase Troponin I NT-Pro-B Natriuret Pep Total Protein Albumin Globulin Albumin/Globulin Ratio Blood Type Antibody Screen 04/23/18 04/23/18 15:05 15:05 WBC RBC Hgb Hct MCV MCH MCHC RDW Plt Count MPV Neut % (Auto) Lymph % (Auto) [place] % (Auto) Eos % (Auto) Baso % (Auto) Neut # (Auto) Lymph # (Auto) [place] # (Auto) Eos # (Auto) Baso # (Auto) PT INR APTT Sodium 143 Potassium 3.5 L Chloride 100 Carbon Dioxide 33 H Anion Gap 14 BUN 14 Creatinine 0.7 Est GFR ( Amer) > 60 Est GFR (Non-Af Amer) > 60 POC Glucose (mg/dL) Random Glucose 84 Calcium 9.8 Total Bilirubin 0.5 AST 31 ALT 25 Alkaline Phosphatase 75 Troponin I < 0.0120 NT-Pro-B Natriuret Pep 99.8 Total Protein 8.7 H Albumin 5.0 D Globulin 3.7 Albumin/Globulin Ratio 1.4 Blood Type A POSITIVE Antibody Screen Negative Assessment & Plan - Assessment and Plan (Free Text) Assessment: 62 y/o female with history of HTN presents to ED with c/o right facial numbness, dizziness admitted for r/o TIA, Plan: TIA Code stoke Protocol F/u MRI Head CT 04/23 - Focal hypoattenuation in the Left parietal subcoritcal white matter CTA head/neck - no evidence of endoluminal thrombus, occulsion or definite/significant stenosis or intracranial, internal carotid, or vertebral arteries Neurology consulted - Dr. Lipscomb, help appreciated Nursing swallow screen - passed neuro checks q4h tele monitor Crestor 10mg PO HS Physical therapy/Occupational therapy ASA 81mg PO daily First troponin negative, will repeat EKG - sinus arrythmia, evaluated outpatient last week with EKG also showing sinus arrythmia, stable f/u Echo with bubble study f/u lipid profile/HbA1c/tsh/t4 NIHSS upon admission to medical team - 0 f/u am labs Hypertension start home meds tomorrow: -Norvasc 5mg PO daily -Lopressor 25mg PO daily -Cozaar 100mg/HCTZ 25mg Headache toradol 30mg IV q6h PRN Anxiety xanax 0.25mg once Prophylaxis SCDs Pepcid 20mg PO BID - home med Heart healthy diet Case reviewed and plan discussed with Dr. Hopkins
[2018-04-23 16:49] VITALS: RESP 20
[2018-04-23] MEDS ORDERED: Potassium Chloride 20 mEq ER Tab PO ONE (17:00)
[2018-04-23 17:08] LABS: SQUAMOUS EPITHIAL < 1 /hpf (0-5); URINE BILIRUBIN NEGATIVE (NEGATIVE); URINE BLOOD NEGATIVE (NEGATIVE); URINE CLARITY Clear (Clear); URINE COLOR Colorless (YELLOW); URINE GLUCOSE (UA) NORMAL (Normal); URINE LEUKOCYTE ESTERASE 1+ Leu/uL (Negative); URINE PROTEIN NEGATIVE (NEGATIVE); URINE UROBILINOGEN NORMAL mg/dL (0.2-1.0)
[2018-04-23 17:09] LABS: HDL CHOLESTEROL 53 mg/dL (30-70)
[2018-04-23 17:19] LABS: LDL CHOLESTEROL 119 mg/dL (0-129)
--- NOTE | 2018-04-23 17:55 | MRI ---
Date of service: 04/23/2018 PROCEDURE: MRI BRAIN WITHOUT CONTRAST HISTORY: tia, right facial numbness, bisual disturbance COMPARISON: Comparison is made with previous MRI dated 03/17/2017 TECHNIQUE: Multiplanar, multisequence MR images of the brain were obtained without intravenous contrast enhancement. FINDINGS: HEMORRHAGE: None DWI: No evidence of an acute or early subacute infarction. BRAIN PARENCHYMA: No mass effect or edema. Few foci of hyperintense T2 and FLAIR signal noted in the subcortical white matter. Findings are nonspecific and may represent mild chronic microvascular ischemic disease. VENTRICLES: Unremarkable. No hydrocephalus. CRANIUM: Unremarkable. ORBITS: Grossly unremarkable. PARANASAL SINUSES/MASTOIDS: Clear VASCULAR SYSTEM: Skull base flow voids intact. OTHER FINDINGS: None. IMPRESSION: No evidence of acute infarct. No evidence of intracranial hemorrhage mass effect or midline shift.
[2018-04-23 23:54] LABS: CK-MB 0.67 ng/mL (0.0-3.38)
[2018-04-24] MEDS: Sodium Chloride 0.9% 1,000 ML IV SCH ×2 (06:29→10:49)
[2018-04-24 07:19] LABS: BASO # 0.1 K/uL (0.0-0.2); BASO % 1.3 % (0.0-2.0); EOS # 0.3 K/uL (0.0-0.7); EOS % 7.2 % (0.0-4.0); HEMOGLOBIN 12.2 g/dL (11.0-16.0); LYMPH # 1.6 K/uL (1.0-4.3); LYMPH % 39.5 % (20.0-40.0); MEAN CELL VOLUME 73.9 fL (81.0-99.0); MEAN CORPUSCULAR HEMOGLOBIN 23.7 pg (27.0-31.0); MEAN CORPUSCULAR HGB CONC 32.1 g/dL (33.0-37.0); MEAN PLATELET VOLUME 8.7 fL (7.2-11.7); MONO # 0.5 K/uL (0.0-0.8); MONO % 11.5 % (0.0-10.0); NEUT # 1.6 K/uL (1.8-7.0); NEUT % 40.5 % (50.0-75.0); NRBC % 0.1 % (0.0-2.0); RBC 5.13 Mil/uL (3.80-5.20)
[2018-04-24 07:28] LABS: ALB/GLOB RATIO 1.2 (1.0-2.1); ALBUMIN 4.2 g/dL (3.5-5.0); ALT/SGPT 22 U/L (9-52); AST/SGOT 21 U/L (14-36); BLOOD UREA NITROGEN 9 mg/dL (7-17); CALCIUM 9.3 mg/dl (8.6-10.4); GFR NON-AFRICAN AMERICAN > 60
[2018-04-24] MEDS ORDERED: Enoxaparin 40 mg Syringe SC SCH (10:00)
[2018-04-24] MEDS ORDERED: HYDROCHLOROTHIAZIDE PO SCH (10:00)
[2018-04-24] MEDS ORDERED: Metoprolol Succinate 25 mg XL Tab PO SCH (10:00)
[2018-04-24] MEDS ORDERED: LOSARTAN PO SCH (10:00)
--- NOTE | 2018-04-24 15:56 | CP.PCM.PN ---
Subjective - Date & Time of Evaluation Date of Evaluation: 04/24/18 Time of Evaluation: 15:52 Objective - Vital Signs/Intake and Output Vital Signs (last 24 hours): Temp Pulse Resp BP Pulse Ox 98.0 F 66 20 149/81 96 04/24/18 07:00 04/24/18 07:00 04/24/18 07:00 04/24/18 07:00 04/24/18 07:00 - Medications Medications: Current Medications Amlodipine Besylate (Norvasc) 5 mg PO DAILY [facility] Last Admin: 04/24/18 10:50 Dose: 5 mg Aspirin (Ecotrin) 81 mg PO DAILY [facility] Last Admin: 04/24/18 10:50 Dose: 81 mg Enoxaparin Sodium (Lovenox) 40 mg SC DAILY [facility] Last Admin: 04/24/18 10:53 Dose: 40 mg Hydrochlorothiazide (Hydrodiuril) 25 mg PO DAILY [facility] Last Admin: 04/24/18 10:50 Dose: 25 mg Sodium Chloride (Sodium Chloride 0.9%) 1,000 mls @ 100 mls/hr IV .Q10H [facility] Last Admin: 04/24/18 10:49 Dose: 100 mls/hr Ketorolac Tromethamine (Toradol) 30 mg IVP Q6 PRN PRN Reason: Pain, moderate (4-7) Losartan Potassium (Cozaar) 100 mg PO DAILY [facility] Last Admin: 04/24/18 10:50 Dose: 100 mg Metoprolol Succinate (Toprol Xl) 25 mg PO DAILY [facility] Last Admin: 04/24/18 10:50 Dose: 25 mg Rosuvastatin Calcium (Crestor) 10 mg PO HS [facility] Last Admin: 04/23/18 22:03 Dose: 10 mg - Labs Labs: 04/24/18 06:57 04/24/18 06:57 PT 13.3 SECONDS (9.7-12.2) H 04/23/18 15:05 INR 1.2 04/23/18 15:05 APTT 42 SECONDS (21-34) H 04/23/18 15:05
[2018-04-24 17:24] VITALS: BP 148/83; PULSE 66; TEMP 98.2; O2SAT 100
--- NOTE | 2018-04-24 18:31 | CP.PCM.CON ---
History of Present Illness - History of Present Illness History of Present Illness: Neurology consult dictated. Patient is clear for discharge. not a tpa candidate and no tia. Thank you Dr. Lipscomb Past Patient History - Infectious Disease Hx of Infectious Diseases: None - Past Medical History & Family History Past Medical History?: Yes - Past Social History Smoking Status: Never Smoked - CARDIAC Hx Hypercholesterolemia: Yes Hx Hypertension: Yes - PULMONARY Hx Asthma: Yes (NEWLY DIAGNOSED) - NEUROLOGICAL Hx Neurological Disorder: Yes Hx Vertigo: Yes - HEENT Hx HEENT Problems: No - RENAL Hx Chronic Kidney Disease: No - ENDOCRINE/METABOLIC Hx Endocrine Disorders: No - HEMATOLOGICAL/ONCOLOGICAL Hx Blood Disorders: No - INTEGUMENTARY Hx Dermatological Problems: No - MUSCULOSKELETAL/RHEUMATOLOGICAL Hx Arthritis: Yes - GASTROINTESTINAL Hx Gastrointestinal Disorders: No - GENITOURINARY/GYNECOLOGICAL Hx Genitourinary Disorders: No - PSYCHIATRIC Hx Anxiety: Yes Hx Substance Use: No - SURGICAL HISTORY Hx Cholecystectomy: Yes - ANESTHESIA Hx Anesthesia: Yes Hx Anesthesia Reactions: No Hx Malignant Hyperthermia: No Meds Allergies/Adverse Reactions: Allergies Allergy/AdvReac Type Severity Reaction Status Date / Time codeine Allergy DIZZINESS Verified 04/23/18 15:39 - Medications Medications: Current Medications Amlodipine Besylate (Norvasc) 5 mg PO DAILY [facility] Last Admin: 04/24/18 10:50 Dose: 5 mg Aspirin (Ecotrin) 81 mg PO DAILY [facility] Last Admin: 04/24/18 10:50 Dose: 81 mg Enoxaparin Sodium (Lovenox) 40 mg SC DAILY [facility] Last Admin: 04/24/18 10:53 Dose: 40 mg Hydrochlorothiazide (Hydrodiuril) 25 mg PO DAILY [facility] Last Admin: 04/24/18 10:50 Dose: 25 mg Sodium Chloride (Sodium Chloride 0.9%) 1,000 mls @ 100 mls/hr IV .Q10H [facility] Last Admin: 04/24/18 10:49 Dose: 100 mls/hr Ketorolac Tromethamine (Toradol) 30 mg IVP Q6 PRN PRN Reason: Pain, moderate (4-7) Losartan Potassium (Cozaar) 100 mg PO DAILY [facility] Last Admin: 04/24/18 10:50 Dose: 100 mg Metoprolol Succinate (Toprol Xl) 25 mg PO DAILY [facility] Last Admin: 04/24/18 10:50 Dose: 25 mg Rosuvastatin Calcium (Crestor) 10 mg PO HS [facility] Last Admin: 04/23/18 22:03 Dose: 10 mg Results - Vital Signs Recent Vital Signs: Last Vital Signs Temp 98.2 F 04/24/18 17:23 Pulse 66 04/24/18 17:23 Resp 20 04/24/18 17:23 BP 148/83 04/24/18 17:23 Pulse Ox 100 04/24/18 17:23 - Labs Result Diagrams: 04/24/18 06:57 04/24/18 06:57 Labs: Laboratory Results - last 24 hr 04/23/18 04/23/18 04/23/18 23:17 23:17 23:17 WBC RBC Hgb Hct MCV MCH MCHC RDW Plt Count MPV Neut % (Auto) Lymph % (Auto) [place] % (Auto) Eos % (Auto) Baso % (Auto) Neut # (Auto) Lymph # (Auto) [place] # (Auto) Eos # (Auto) Baso # (Auto) Sodium Potassium Chloride Carbon Dioxide Anion Gap BUN Creatinine Est GFR ( Amer) Est GFR (Non-Af Amer) Random Glucose Hemoglobin A1c 6.4 Calcium Phosphorus Magnesium Total Bilirubin AST ALT Alkaline Phosphatase Total Creatine Kinase 115 CK-MB (Mass) 0.67 Troponin I < 0.0120 Total Protein Albumin Globulin Albumin/Globulin Ratio Free T4 1.16 TSH 3rd Generation 1.12 04/24/18 04/24/18 06:57 06:57 WBC 4.0 L RBC 5.13 Hgb 12.2 Hct 37.9 MCV 73.9 L MCH 23.7 L MCHC 32.1 L RDW 14.0 Plt Count 208 MPV 8.7 Neut % (Auto) 40.5 L Lymph % (Auto) 39.5 [place] % (Auto) 11.5 H Eos % (Auto) 7.2 H Baso % (Auto) 1.3 Neut # (Auto) 1.6 L Lymph # (Auto) 1.6 [place] # (Auto) 0.5 Eos # (Auto) 0.3 Baso # (Auto) 0.1 Sodium 145 Potassium 4.1 Chloride 103 Carbon Dioxide 31 H Anion Gap 14 BUN 9 Creatinine 0.6 L Est GFR ( Amer) > 60 Est GFR (Non-Af Amer) > 60 Random Glucose 101 Hemoglobin A1c Calcium 9.3 Phosphorus 2.8 Magnesium 2.1 Total Bilirubin 0.6 AST 21 ALT 22 Alkaline Phosphatase 71 Total Creatine Kinase CK-MB (Mass) Troponin I Total Protein 7.6 Albumin 4.2 Globulin 3.4 Albumin/Globulin Ratio 1.2 Free T4 TSH 3rd Generation
--- NOTE | 2018-04-24 19:04 | CP.PCM.DIS ---
Provider - Provider Date of Admission: 04/23/18 15:49 Attending physician: Noris Claudio DO Time Spent in preparation of Discharge (in minutes): 35 Diagnosis - Discharge Diagnosis (1) Head ache Status: Acute Priority: Medium Hospital Course - Lab Results Lab Results: Most Recent Lab Values WBC 4.0 K/uL (4.8-10.8) L 04/24/18 06:57 RBC 5.13 Mil/uL (3.80-5.20) 04/24/18 06:57 Hgb 12.2 g/dL (11.0-16.0) 04/24/18 06:57 Hct 37.9 % (34.0-47.0) 04/24/18 06:57 MCV 73.9 fL (81.0-99.0) L 04/24/18 06:57 MCH 23.7 pg (27.0-31.0) L 04/24/18 06:57 MCHC 32.1 g/dL (33.0-37.0) L 04/24/18 06:57 RDW 14.0 % (11.5-14.5) 04/24/18 06:57 Plt Count 208 K/uL (130-400) 04/24/18 06:57 MPV 8.7 fL (7.2-11.7) 04/24/18 06:57 Neut % (Auto) 40.5 % (50.0-75.0) L 04/24/18 06:57 Lymph % (Auto) 39.5 % (20.0-40.0) 04/24/18 06:57 [place] % (Auto) 11.5 % (0.0-10.0) H 04/24/18 06:57 Eos % (Auto) 7.2 % (0.0-4.0) H 04/24/18 06:57 Baso % (Auto) 1.3 % (0.0-2.0) 04/24/18 06:57 Neut # (Auto) 1.6 K/uL (1.8-7.0) L 04/24/18 06:57 Lymph # (Auto) 1.6 K/uL (1.0-4.3) 04/24/18 06:57 [place] # (Auto) 0.5 K/uL (0.0-0.8) 04/24/18 06:57 Eos # (Auto) 0.3 K/uL (0.0-0.7) 04/24/18 06:57 Baso # (Auto) 0.1 K/uL (0.0-0.2) 04/24/18 06:57 PT 13.3 SECONDS (9.7-12.2) H 04/23/18 15:05 INR 1.2 04/23/18 15:05 APTT 42 SECONDS (21-34) H 04/23/18 15:05 Sodium 145 mmol/L (132-148) 04/24/18 06:57 Potassium 4.1 mmol/L (3.6-5.2) 04/24/18 06:57 Chloride 103 mmol/L (98-107) 04/24/18 06:57 Carbon Dioxide 31 mmol/L (22-30) H 04/24/18 06:57 Anion Gap 14 (10-20) 04/24/18 06:57 BUN 9 mg/dL (7-17) 04/24/18 06:57 Creatinine 0.6 mg/dL (0.7-1.2) L 04/24/18 06:57 Est GFR ( Amer) > 60 04/24/18 06:57 Est GFR (Non-Af Amer) > 60 04/24/18 06:57 POC Glucose (mg/dL) 99 mg/dL (65-110) 04/23/18 14:42 Random Glucose 101 mg/dL (65-105) 04/24/18 06:57 Hemoglobin A1c 6.4 % (4.2-6.5) 04/23/18 23:17 Calcium 9.3 mg/dl (8.6-10.4) 04/24/18 06:57 Phosphorus 2.8 mg/dL (2.5-4.5) 04/24/18 06:57 Magnesium 2.1 mg/dL (1.6-2.3) 04/24/18 06:57 Total Bilirubin 0.6 mg/dL (0.2-1.3) 04/24/18 06:57 AST 21 U/L (14-36) 04/24/18 06:57 ALT 22 U/L (9-52) 04/24/18 06:57 Alkaline Phosphatase 71 U/L (38-126) 04/24/18 06:57 Total Creatine Kinase 115 U/L (30-135) 04/23/18 23:17 CK-MB (Mass) 0.67 ng/mL (0.0-3.38) 04/23/18 23:17 Troponin I < 0.0120 ng/mL (0.00-0.120) 04/23/18 23:17 NT-Pro-B Natriuret Pep 99.8 pg/mL (0-900) 04/23/18 15:05 Total Protein 7.6 g/dL (6.3-8.3) 04/24/18 06:57 Albumin 4.2 g/dL (3.5-5.0) 04/24/18 06:57 Globulin 3.4 gm/dL (2.2-3.9) 04/24/18 06:57 Albumin/Globulin Ratio 1.2 (1.0-2.1) 04/24/18 06:57 Triglycerides 139 mg/dL (0-149) D 04/23/18 15:05 Cholesterol 196 mg/dL (0-199) 04/23/18 15:05 LDL Cholesterol Direct 119 mg/dL (0-129) 04/23/18 15:05 HDL Cholesterol 53 mg/dL (30-70) 04/23/18 15:05 Free T4 1.16 ng/dL (0.78-2.19) 04/23/18 23:17 TSH 3rd Generation 1.12 mIU/L (0.46-4.68) 04/23/18 23:17 Urine Color Colorless (YELLOW) 04/23/18 16:54 Urine Clarity Clear (Clear) 04/23/18 16:54 Urine pH 7.0 (5.0-8.0) 04/23/18 16:54 Ur Specific [place] 1.012 (1.003-1.030) 04/23/18 16:54 Urine Protein Negative mg/dL (NEGATIVE) 04/23/18 16:54 Urine Glucose (UA) Normal mg/dL (Normal) 04/23/18 16:54 Urine Ketones Negative mg/dL (NEGATIVE) 04/23/18 16:54 Urine Blood Negative (NEGATIVE) 04/23/18 16:54 Urine Nitrate Negative (NEGATIVE) 10/26/18 16:54 Urine Bilirubin Negative (NEGATIVE) 04/23/18 16:54 Urine Urobilinogen Normal mg/dL (0.2-1.0) 04/23/18 16:54 Ur Leukocyte Esterase 1+ [place]/uL (Negative) H 04/23/18 16:54 Urine WBC (Auto) 2 /hpf (0-5) 04/23/18 16:54 Ur Squamous Epith Cells < 1 /hpf (0-5) 04/23/18 16:54 Blood Type A POSITIVE 04/23/18 15:05 Antibody Screen Negative 04/23/18 15:05 - Hospital Course Hospital Course: 2 y/o female with history of HTN presents to ED with c/o right facial numbness, dizziness, sob and reproducible chest pressure with palpation for 2 days. Pt reports prior history of this numbness/tingling last year, twice. Pt also reports a heaviness in the head. She reports dizziness that started 2 days ago, specifically that she was spinning. She reports losing balance and falling twice, but denies head trauma or loss of consciousness. Patient states this morning she had blurry vision which resolved on its own. Patient admits to nausea and denies fever, chills, vomiting or any other complaints at this time. She reports a long-standing history of headaches, which she typically takes tylenol for to help alleviate. Patient has history of dizziness and diagnosed with vertigo. Suffering from dizziness last 20 years. Had headaches on and off for 5 years. She had similar facial numbness in the past. MRI brain ,CAT head and neck negative.Patient knows that she has boarderline DM. She states that she love sweets and drink juice offen. Seen by neurologist DR Lipscomb No TIA,no CVA We will recommend to follow her primary care.Asked to avoid sugar,sweets and juices. check her HA1c and sugar Discharge Exam - Head Exam Head Exam: ATRAUMATIC, NORMOCEPHALIC Discharge Plan - Follow Up Plan Condition: GUARDED Disposition: HOME/ ROUTINE
--- NOTE | 2018-04-25 08:51 | CON ---
DATE: 04/24/2018 NEUROLOGY CONSULTATION Called by Dr. Triston Hopkins. HISTORY OF PRESENT ILLNESS: This patient is a 62-year-old woman with past medical history of high blood pressure which has been refractory in the past and treated with an antihypertensive agents, but not amenable to any normal range blood pressure. She presented to the emergency room with bifacial numbness, dizziness, shortness of breath, chest pain, and palpation for two days. She states that in the past one year, this happened over 20 times with resolution. She has presented to the hospital multiple times for the same complaint and sent to multiple hospitals as well. There was no headache. There was no visual field loss. There was no aphasia. There was no weakness. There was no ataxia. There was no history of stroke in the past. No history of seizure. The patient does not have any recent trauma incidents. REVIEW OF SYSTEMS: Positive for nausea and vomiting. When I saw her today, the patient's symptoms were completely resolved. She is well, and she is amenable to more aggressive hypertension, . PAST MEDICAL HISTORY: As above including anxiety as well as asthma, cardiac arrhythmia, hypertension, hypercholesterolemia. PAST SURGICAL HISTORY: Cholecystectomy and endoscopy. FAMILY AND SOCIAL HISTORY: The patient is currently employed. She drinks occasionally. There is no tobacco. ALLERGIES: THERE IS NO DRUG ALLERGIES. PHYSICAL EXAMINATION: NEUROLOGIC: The patient is alert and oriented x3. Cranial nerves II through XII normal. EOMI. PERRL. Motor tone and strength is completely normal. Sensory is intact to fine touch, pin and position face and the arm. There is no aphasia. Mini mental status is 30/30. Gait is normal. Tandem gait is well. There is no pronator drift. Deep tendon reflexes are +1 to +2 upper and lower bilaterally. LABORATORY DATA: Labs are as follows: White count 4, hemoglobin 12.2, hematocrit 37.9, platelets 208. Chemistry shows: Sodium 145, potassium 4.1, carbon dioxide 31, creatinine 0.6, BUN 14. AST and ALT are normal. Total bilirubin is normal. Lipid profile completely normal as well including triglycerides. TSH and free T4 are normal as well. CT of the head was done, it is normal. CTA of the head and neck was done, and it shows the following: Normal study with no evidence of hemodynamically significant stenosis. MRI of the brain was done today and it shows the following. There is no acute infarct or intracranial hemorrhage. IMPRESSION AND PLAN: This is a 62-year-old woman with uncontrolled hypertension and mild hypertensive encephalopathy presenting as transient ischemic attack but was not actually an ischemia event. In addition, she does not have a lacunar infarct. I believe, this is renal hypertension, and would need further evaluation with the chief fundraising officer. Thank you for this interesting consult. Vinny Lipscomb MD
--- NOTE | 2018-04-26 17:23 | CARD ---
APPROVED REPORT Date of service: 04/23/2018 EKG Measurement Heart [id number] <Conclusion> Normal sinus rhythm with sinus arrhythmia Possible Left atrial enlargement Possible Anterior infarct, age undetermined Abnormal ECG
== END 2018-04-24 17:30 | disposition home or self-care (01) ==
LOC: C.ER 14:30 → C.9E 15:49 → C.6T 17:03
PROVIDERS: ADMIT Hospitalist; ATTEND Hospitalist
DX: R51 Headache (principal); R42 Dizziness and giddiness; E11.9 Type 2 diabetes mellitus without complications; H54.7 Unspecified visual loss; I10 Essential (primary) hypertension; I67.4 Hypertensive encephalopathy; J45.909 Unspecified asthma, uncomplicated; K59.00 Constipation, unspecified
CPT/HCPCS: 36415; 70450; 70496; 70498; 70551; 71045; 80053; 80061; 81001; 82948; 83036; 83735; 83880; 84100; 84439; 84443; 84484; 85025; 85610; 85730; 86850; 86900; 93005; 97116; 97162; 99285; G0378; G8978; G8979; J1650; J7030; Q9967

== ENCOUNTER 2018-10-28 19:22 | Observation (INO) | payer OTHER ==
[2018-10-28 19:22] VITALS: BMI 24.2
--- NOTE | 2018-10-28 19:47 | C.PDOC ---
History Of Present Illness pt presents with severe headache and chest pain since yesterday. No f/c/n/v. Dull throbbing headache - no visual changes, no slurred speech or weakness. Also dull aching non radiating chest discomfort. Speaking in complete sentences. Time Seen by Provider: 10/28/18 19:46 Chief Complaint (Nursing): Chest Pain History Per: Patient History/Exam Limitations: no limitations Onset/Duration Of Symptoms: Days Current Symptoms Are (Timing): Still Present Context: Other Severity: Moderate Pain Scale Rating Of: 4 Quality: Dull, Aching, Pressure Associated Symptoms: denies: Nausea, Dyspnea, Diaphoresis Modifying Factors: None Exacerbating Factors: None Alleviating Factors: None Recent travel outside of the [place]: No Additional History Per: Patient Past Medical History Reviewed: Historical Data, Nursing Documentation, Vital Signs Vital Signs: Last Vital Signs Temp 98.1 F 10/28/18 19:28 Pulse 90 10/28/18 19:28 Resp 14 10/28/18 19:28 BP 160/110 H 10/28/18 19:28 Pulse Ox 99 10/28/18 19:28 Primary Care Provider: Non [facility] Provider, - Medical History PMH: Anxiety, Arthritis, Asthma (NEWLY DIAGNOSED), Cardia Arrhythmia, HTN, Hypercholesterolemia Denies: Chronic Kidney Disease Surgical History: Cholecystectomy, Endoscopy - [facility] COLONOSCOPY (02/01/15) LAPAROSCOPIC CHOLECYSTECTOMY (12/22/14) LAPAROSCOPIC ROBOTIC ASSISTED PROCEDURE (12/22/14) Family History: States: No Known Family Hx - Social History Hx Tobacco Use: No Hx Alcohol Use: Yes Hx Substance Use: No - Immunization History Hx Tetanus Toxoid Vaccination: No Hx Influenza Vaccination: No Hx Pneumococcal Vaccination: No Review Of Systems Constitutional: Negative for: Fever, Chills Eyes: Negative for: Vision Change ENT: Negative for: Throat Pain Cardiovascular: Positive for: Chest Pain Respiratory: Negative for: Shortness of Breath Gastrointestinal: Negative for: Nausea, Vomiting Genitourinary: Negative for: Dysuria Musculoskeletal: Positive for: Neck Pain Skin: Negative for: Rash Neurological: Positive for: Headache. Negative for: Weakness, Numbness Psych: Positive for: Anxiety Physical Exam - Physical Exam Appears: Non-toxic, No Acute Distress Skin: Warm, Dry Head: Normacephalic Eye(s): bilateral: Normal Inspection Oral Mucosa: Moist Lips: Normal Appearing Throat: No Erythema Neck: Normal ROM, Trachea Midline, No Midline Cervical Tenderness, Supple Chest: Symmetrical Cardiovascular: Rhythm Regular Respiratory: No Rales, No Rhonchi, No Wheezing Gastrointestinal/Abdominal: Soft, No Tenderness, No Distention Back: No CVA Tenderness Extremity: No Tenderness Extremity: Bilateral: Atraumatic, No Pedal Edema, Normal Color And Temperature, Normal ROM Pulses: Left Dorsalis Pedis: Normal, Right Dorsalis Pedis: Normal Neurological/Psych: Oriented x3, Normal Speech, Normal Cognition, Normal Motor, Normal Sensation, Normal Reflexes Gait: Unable To Assess ED Course And Treatment - Laboratory Results Result Diagrams: 10/28/18 19:59 10/28/18 19:59 ECG: Interpreted By Me, Viewed By Me ECG Rhythm: Sinus Rhythm (81), Nonspecific Changes O2 Sat by Pulse Oximetry: 99 Pulse Ox Interpretation: Normal - Radiology CXR: Interpreted by Me, Viewed By Me CXR Interpretation: No: Infiltrates, Fracture, Pnemothorax Progress Note: spoke with dr rubio Critical Care Time - Critical Care Note Total Time (in mins): 30 Documented critical care: time excludes all time spent performing seperately billable procedures. NIHSS Stroke Scale - Date/Time Evaluation Performed Date Performed: 10/28/18 Time Performed: 19:34 When Was NIHSS Performed: Baseline - How Severe is the Stoke Level of Consciousness: 0=Alert LOC to Questions: 0=Both comments correct LOC to commands: 0=Obeys both correctly Best Gaze: 0=Normal Visual: 0=No visual loss Facial: 0=Normal Motor Arm - Left: 0=No drift Motor Arm - Right: 0=No drift Motor Leg - Left: 0=No drift Motor Leg - Right: 0=No drift Limb Ataxia: 0=Absent Sensory: 0=Normal Best Language: 0=No aphasia Dysarthia: 0=Normal articulation Extinction & Inattention (Neglect): 0=Normal, no object Score: 0 Disposition Discussed With : Madhu Jolly Comment: accepted the [facility] er service and took over the care at 9:14 PM Doctor Will See Patient In The: ED Counseled Patient/Family Regarding: Studies Performed, Diagnosis - Disposition Disposition: HOSPITALIZED Disposition Time: 19:46 Condition: FAIR Forms: [facility] (Nepali) - POA Present On Arrival: None - Clinical Impression Clinical Impression: Chest pain, Headache Decision To Admit - Pt Status Changed To: Hospital Disposition Of: Observation - . Bed Request Type: Telemetry Admitting Physician: Madhu Jolly Patient Diagnosis: Chest pain, Headache
[2018-10-28] MEDS ORDERED: Iohexol 350mg/ml 100 ML ONE (19:54)
[2018-10-28] MEDS ORDERED: Sodium Chloride 0.9% 1,000 ML IV SCH (20:00)
[2018-10-28 20:05] LABS: BASO # 0.1 K/uL (0.0-0.2); BASO % 1.2 % (0.0-2.0); EOS # 0.3 K/uL (0.0-0.7); EOS % 4.7 % (0.0-4.0); HEMOGLOBIN 12.6 g/dL (11.0-16.0); LYMPH # 2.4 K/uL (1.0-4.3); LYMPH % 39.9 % (20.0-40.0); MEAN CELL VOLUME 72.8 fL (81.0-99.0); MEAN CORPUSCULAR HEMOGLOBIN 23.4 pg (27.0-31.0); MEAN CORPUSCULAR HGB CONC 32.2 g/dL (33.0-37.0); MEAN PLATELET VOLUME 8.4 fL (7.2-11.7); MONO # 0.4 K/uL (0.0-0.8); MONO % 7.2 % (0.0-10.0); NEUT # 2.9 K/uL (1.8-7.0); NRBC % 0.1 % (0.0-2.0); RBC 5.38 Mil/uL (3.80-5.20); RED CELL DISTRIBUTION WIDTH 14.9 % (11.5-14.5)
[2018-10-28 20:08] LABS: WHITE BLOOD COUNT 6.1 K/uL (4.8-10.8)
[2018-10-28 20:13] LABS: INR 1.1; PROTHROMBIN TIME 11.6 SECONDS (9.7-12.2)
[2018-10-28 20:20] LABS: ALB/GLOB RATIO 1.2 (1.0-2.1); ALBUMIN 4.9 g/dL (3.5-5.0); ALT/SGPT 20 U/L (9-52); AST/SGOT 27 U/L (14-36); BLOOD UREA NITROGEN 15 mg/dL (7-17); CALCIUM 10.1 mg/dl (8.6-10.4); GFR NON-AFRICAN AMERICAN > 60; HDL CHOLESTEROL 51 mg/dL (30-70)
[2018-10-28 20:30] LABS: LDL CHOLESTEROL 146 mg/dL (0-129)
[2018-10-28] MEDS ORDERED: Amoxicillin-Clav 875-125 mg Tab PO SCH (22:30)
--- NOTE | 2018-10-28 22:31 | CP.PCM.HP ---
"<Drew Parra - Last Filed: 10/29/18 05:25> History of Present Illness - History of Present Illness History of Present Illness: 63 year old female with a past medical history of arthritis, anxiety, asthma?, caraiac arrhythmia, hypertension, hypercholesterolemia and TIA presents to hospital after reporting posterior neck stress at the base of her neck that began at 2p.m. Patient states she was resting when the pain began. She rated the pain a 4/10 or 5/10 in severity with no radiation. Patient does report taking Aspirin with no relief in symptoms. Patient also reported chest pressure that began at the same time as the neck stress. Patient states it's mid-sternal with no radiation. Patient stated the pain was a 5/10 in severity with no improvement in symptoms. Patient also reported nausea and shortness of breath in conjunction with the presenting symptoms. Patient recently lost two friends from CVA and that prompted her to come in to the emergency department. Patient denies any nausea, changes in vision, palpitation, dizziness, syncopal, episodes, or any other complaints. PMD: Dr. Meléndez Medical history: arthritis, anxiety, asthma?, caraiac arrhythmia, hypertension, hypercholesterolemia and TIA Allergies: Codeine Medicatons: Metoprolol 25mg PO DAILY, Simivistatin 10mg PO DAILY, Losartan-HCTZ 100-25mg PO DAILY, Amlodipine 5mg PO DAILY Surgical history: cholecystectomy, endoscopy, Family history: Mom at 31 2/2 to childbirth Social history: Social etoh use. Denies smoking or illicit drugs. 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 Code Status: Full code Present on Admission - Present on Admission Any Indicators Present on Admission: No Review of Systems - Constitutional Constitutional: absent: Daytime Sleepiness, Malaise - EENT Eyes: absent: Blind Spots, Blurred Vision, Change in Vision, Pain, Photophobia, Sees Flashes, Spots in Vision Nose/Mouth/Throat: Sinus Pressure. absent: Nasal Congestion, Bleeding Gums - Cardiovascular Cardiovascular: Chest Pain. absent: Chest Pain at Rest, Chest Pain with Activity, Irregular Heart Rhythm, Palpitations, Pedal Edema - Respiratory Respiratory: absent: Cough, Dyspnea, Dyspnea on Exertion - Gastrointestinal Gastrointestinal: absent: Belching, Bloating, Diarrhea, Dyspepsia, Dysphagia - Genitourinary Genitourinary: absent: Dysuria, Flank Pain, Urinary Urgency - Musculoskeletal Musculoskeletal: absent: Back Pain, Myalgias, Neck Pain - Integumentary Integumentary: absent: Rash, Skin Pain, Striae - Neurological Neurological: absent: Abnormal Speech, Numbness, Memory Loss, Vertigo, Weakness - Psychiatric Psychiatric: absent: Auditory Hallucinations, Memory Loss, Mood Swings, Visual Hallucinations, Tactile Hallucinations - Endocrine Endocrine: absent: Polydipsia, Polyphagia, Polyuria - Hematologic/Lymphatic Hematologic: absent: Easy Bleeding, Easy Bruising Past Patient History - Infectious Disease Hx of Infectious Diseases: None - Past Medical History & Family History Past Medical History?: Yes - Past Social History Smoking Status: Never Smoked - CARDIAC Hx Cardia Arrhythmia: Yes Hx Hypercholesterolemia: Yes Hx Hypertension: Yes - PULMONARY Hx Asthma: Yes (NEWLY DIAGNOSED) - NEUROLOGICAL Hx Neurological Disorder: Yes Hx Vertigo: Yes - HEENT Hx HEENT Problems: No - RENAL Hx Chronic Kidney Disease: No - ENDOCRINE/METABOLIC Hx Endocrine Disorders: No - HEMATOLOGICAL/ONCOLOGICAL Hx Blood Disorders: No - INTEGUMENTARY Hx Dermatological Problems: No - MUSCULOSKELETAL/RHEUMATOLOGICAL Hx Arthritis: Yes - GASTROINTESTINAL Hx Gastrointestinal Disorders: No - GENITOURINARY/GYNECOLOGICAL Hx Genitourinary Disorders: No - PSYCHIATRIC Hx Anxiety: Yes Hx Substance Use: No - SURGICAL HISTORY Hx Cholecystectomy: Yes - ANESTHESIA Hx Anesthesia: Yes Hx Anesthesia Reactions: No Hx Malignant Hyperthermia: No Meds Allergies/Adverse Reactions: Allergies Allergy/AdvReac Type Severity Reaction Status Date / Time codeine Allergy DIZZINESS Verified 10/28/18 19:33 Physical Exam - Head Exam Head Exam: ATRAUMATIC, NORMAL INSPECTION Additional comments: Maxillary sinus tenderness to palpation - Eye Exam Eye Exam: EOMI, Normal appearance. absent: Periorbital swelling Pupil Exam: NORMAL ACCOMODATION, PERRL - ENT Exam ENT Exam: Mucous Membranes Moist, Normal Exam. absent: Normal External Ear Exam - Neck Exam Neck exam: Positive for: Normal Inspection - Respiratory Exam Respiratory Exam: Clear to Auscultation Bilateral, NORMAL BREATHING PATTERN - Cardiovascular Exam Cardiovascular Exam: REGULAR RHYTHM, +S1, +S2 - GI/Abdominal Exam GI & Abdominal Exam: Normal Bowel Sounds, Soft - Extremities Exam Extremities exam: Positive for: full ROM, normal inspection. Negative for: joint swelling, normal capillary refill - Back Exam Back exam: NORMAL INSPECTION. absent: CVA tenderness (L), CVA tenderness (R), tenderness - Neurological Exam Neurological exam: Alert, CN II-XII Intact, Normal Gait, Oriented x3, Reflexes Normal - Psychiatric Exam Psychiatric exam: Normal Affect, Normal Mood - Skin Skin Exam: Dry, Normal Color, Warm Results - Vital Signs Recent Vital Signs: Last Vital Signs Temp 98.3 F 10/28/18 22:14 Pulse 64 10/28/18 22:14 Resp 18 10/28/18 22:14 BP 149/80 10/28/18 22:14 Pulse Ox 98 10/28/18 22:14 - Labs Result Diagrams: 10/28/18 19:59 10/28/18 19:59 Labs: Laboratory Results - last 24 hr 10/28/18 10/28/18 10/28/18 19:45 19:59 19:59 WBC 6.1 D RBC 5.38 H Hgb 12.6 Hct 39.1 MCV 72.8 L MCH 23.4 L MCHC 32.2 L RDW 14.9 H Plt Count 218 MPV 8.4 Neut % (Auto) 47.0 L Lymph % (Auto) 39.9 Centre % (Auto) 7.2 Eos % (Auto) 4.7 H Baso % (Auto) 1.2 Neut # (Auto) 2.9 Lymph # (Auto) 2.4 Centre # (Auto) 0.4 Eos # (Auto) 0.3 Baso # (Auto) 0.1 PT 11.6 INR 1.1 APTT 39.0 H Sodium Potassium Chloride Carbon Dioxide Anion Gap BUN Creatinine Est GFR ( Amer) Est GFR (Non-Af Amer) POC Glucose (mg/dL) 113 H Random Glucose Hemoglobin A1c Calcium Total Bilirubin AST ALT Alkaline Phosphatase Troponin I Total Protein Albumin Globulin Albumin/Globulin Ratio Triglycerides Cholesterol LDL Cholesterol Direct HDL Cholesterol Blood Type Antibody Screen 10/28/18 10/28/18 10/28/18 19:59 19:59 19:59 WBC RBC Hgb Hct MCV MCH MCHC RDW Plt Count MPV Neut % (Auto) Lymph % (Auto) Centre % (Auto) Eos % (Auto) Baso % (Auto) Neut # (Auto) Lymph # (Auto) Centre # (Auto) Eos # (Auto) Baso # (Auto) PT INR APTT Sodium 143 Potassium 3.4 L Chloride 102 Carbon Dioxide 28 Anion Gap 16 BUN 15 Creatinine 0.8 Est GFR ( Amer) > 60 Est GFR (Non-Af Amer) > 60 POC Glucose (mg/dL) Random Glucose 98 Hemoglobin A1c 6.3 Calcium 10.1 Total Bilirubin 0.3 AST 27 ALT 20 Alkaline Phosphatase 76 Troponin I < 0.0120 Total Protein 9.0 H Albumin 4.9 Globulin 4.1 H Albumin/Globulin Ratio 1.2 Triglycerides 225 H D Cholesterol 225 H LDL Cholesterol Direct 146 H HDL Cholesterol 51 Blood Type A POSITIVE Antibody Screen Negative Assessment & Plan - Assessment and Plan (Free Text) Assessment: 63 year old female with a past medical history of arthritis, anxiety, asthma?, caraiac arrhythmia, hypertension, hypercholesterolemia and TIA presents to hospital after reporting posterior neck stress at the base of her neck that began at 2p.m Plan: ?TIA Acute Code stoke Protocol Head CT:negative (Prelim read) CTA head/neck - no evidence of endoluminal thrombus, occulsion or definite/significant stenosis or intracranial, internal carotid, or vertebral arteries (Prelim read) Neurology consulted - Dr. Lipscomb, help appreciated neuro checks q4h Physical therapy/Occupational therapy First troponin negative. Will trend x 2 f/u /HbA1c/tsh NIHSS upon admission to medical team - 0 Medications: Continue Crestor 10mg PO HS Asprin 81mg PO DAILY Crestor 10mg PO HS Chest pain Acute EKG: sinus @81bpm. No st/t changes Troponin (-)x1. Will trend x 2 Lipid panel ordered. Will f/u with results Hemoglobin A1C ordered. Will f/u with results Hypertension Chronic -Continue Norvasc 5mg PO daily -Continue Lopressor 25mg PO daily -ContinueCozaar 100mg/HCTZ 25mg Hx of Hypercholesterolemia Chronic Lipid panel: LDL-146| Cholesterol- 225| Triglycerides-225| HDL- 51 -Continue Simvistatin 10mg PO DAILY ?Sinusitus Acute -Maxillary tenderness on exam. -Afebrile, No leukocytosis -Sinus CT ordered. Will f/u with results -Start Augmentin 875mg PO Q12 rigo Hypokalemia Acute 3.4 on Admission Repleted Will monitor with repeat CMP in the A.M. Prophylaxis SCDs Pepcid 20mg Heart healthy diet PT/OT Plan discussed with Attending Dr. Jolly. Drew Parra, PGY-2 NIHSS Stroke Scale - Date/Time Evaluation Performed Date Performed: 10/28/18 Time Performed: 19:34 - How Severe is the Stroke Level of Consciousness: 0=Alert LOC to Questions: 0=Both comments correct LOC to commands: 0=Obeys both correctly Best Gaze: 0=Normal Visual: 0=No visual loss Facial: 0=Normal Motor Arm - Left: 0=No drift Motor Arm - Right: 0=No drift Motor Leg - Left: 0=No drift Motor Leg - Right: 0=No drift Limb Ataxia: 0=Absent Sensory: 0=Normal Best Language: 0=No aphasia Dysarthia: 0=Normal articulation Extinction & Inattention (Neglect): 0=Normal, no object Score: 0 <JollyGerhardmilagros Capone - Last Filed: 10/29/18 06:45> Results - Vital Signs Recent Vital Signs: Last Vital Signs Temp 98.3 F 10/28/18 22:14 Pulse 64 10/28/18 22:14 Resp 18 10/28/18 22:14 BP 149/80 10/28/18 22:14 Pulse Ox 98 10/28/18 22:14 - Labs Result Diagrams: 10/28/18 19:59 10/28/18 19:59 Labs: Laboratory Results - last 24 hr 10/28/18 10/28/18 10/28/18 19:45 19:59 19:59 WBC 6.1 D RBC 5.38 H Hgb 12.6 Hct 39.1 MCV 72.8 L MCH 23.4 L MCHC 32.2 L RDW 14.9 H Plt Count 218 MPV 8.4 Neut % (Auto) 47.0 L Lymph % (Auto) 39.9 Centre % (Auto) 7.2 Eos % (Auto) 4.7 H Baso % (Auto) 1.2 Neut # (Auto) 2.9 Lymph # (Auto) 2.4 Centre # (Auto) 0.4 Eos # (Auto) 0.3 Baso # (Auto) 0.1 PT 11.6 INR 1.1 APTT 39.0 H Sodium Potassium Chloride Carbon Dioxide Anion Gap BUN Creatinine Est GFR ( Amer) Est GFR (Non-Af Amer) POC Glucose (mg/dL) 113 H Random Glucose Hemoglobin A1c Calcium Total Bilirubin AST ALT Alkaline Phosphatase Troponin I Total Protein Albumin Globulin Albumin/Globulin Ratio Triglycerides Cholesterol LDL Cholesterol Direct HDL Cholesterol Blood Type Antibody Screen 10/28/18 10/28/18 10/28/18 19:59 19:59 19:59 WBC RBC Hgb Hct MCV MCH MCHC RDW Plt Count MPV Neut % (Auto) Lymph % (Auto) Centre % (Auto) Eos % (Auto) Baso % (Auto) Neut # (Auto) Lymph # (Auto) Centre # (Auto) Eos # (Auto) Baso # (Auto) PT INR APTT Sodium 143 Potassium 3.4 L Chloride 102 Carbon Dioxide 28 Anion Gap 16 BUN 15 Creatinine 0.8 Est GFR ( Amer) > 60 Est GFR (Non-Af Amer) > 60 POC Glucose (mg/dL) Random Glucose 98 Hemoglobin A1c 6.3 Calcium 10.1 Total Bilirubin 0.3 AST 27 ALT 20 Alkaline Phosphatase 76 Troponin I < 0.0120 Total Protein 9.0 H Albumin 4.9 Globulin 4.1 H Albumin/Globulin Ratio 1.2 Triglycerides 225 H D Cholesterol 225 H LDL Cholesterol Direct 146 H HDL Cholesterol 51 Blood Type A POSITIVE Antibody Screen Negative Addendum Addendum: 10/29/18 01:19 pt with hx of arthritis HLD sinus probleblems htn , describes head ache on the top of head and at the back of neck like squeezing type persistant since 2 pm also had similar symptoms yesterday , also describes chest pressure sob since 2 pm and pressure under the eyes.had some sob at 2 pm. Attending/Attestation - Attestation I have fully participated in the care of the patient.: Yes I have reviewed all pertinent clinical information: Yes Notes (Text): 10/29/18 06:45 i have this pt with resiident and helped with management."
[2018-10-28] MEDS ORDERED: Albuterol-Ipratrop 3 mg / 0.5 (3 ml) UD INH PRN (23:12)
[2018-10-29] MEDS ORDERED: Potassium Chloride 20 mEq/15 ml LIQ UD PO ONE (01:46)
[2018-10-29 02:24] VITALS: RESP 20
[2018-10-29 03:14] LABS: CK-MB 0.52 ng/mL (0.0-3.38)
--- NOTE | 2018-10-29 07:02 | CT ---
Date of service: 10/28/2018 PROCEDURE: CT HEAD WITHOUT CONTRAST. HISTORY: Code Stroke COMPARISON: None available. TECHNIQUE: Axial computed tomography images were obtained through the head/brain without intravenous contrast. Radiation dose: Total exam DLP = 959.59 mGy-cm. This CT exam was performed using one or more of the following dose reduction techniques: Automated exposure control, adjustment of the mA and/or kV according to patient size, and/or use of iterative reconstruction technique. FINDINGS: HEMORRHAGE: No intracranial hemorrhage. BRAIN: No mass effect or edema. Scattered focal lucencies in the subcortical and periventricular white matter suggestive for chronic microvascular ischemic change. Punctate hypodensity in the left basal ganglia may represent a small lacunar infarct. Focal area of low attenuation seen within the left frontal subcortical white matter may be related to age-indeterminate ischemic change. VENTRICLES: Unremarkable. No hydrocephalus. CALVARIUM: Unremarkable. PARANASAL SINUSES: Unremarkable as visualized. No significant inflammatory changes. MASTOID AIR CELLS: Unremarkable as visualized. No inflammatory changes. OTHER FINDINGS: Study is limited as there are external metallic hair pins causing streak attenuation artifact. IMPRESSION: 1. No acute intracranial hemorrhage. 2. Study is limited as there are external metallic hair pins causing streak attenuation artifact. For example, some confluent low attenuation seen within the left frontal subcortical white matter as demonstrated on series 4, image 26 may be related to age-indeterminate ischemic change. Correlation with diffusion-weighted MRI may be helpful if clinically indicated. 3. Chronic microvascular ischemic change. 4. Punctate left basal ganglia lacunar infarct. Repeat CT study with external hair pins removed and or correlation with diffusion-weighted MRI is recommended if there is persistent concern for acute ischemic change. A preliminary report was generated at 8:55 p.m. on 10/28/[address] Silviano Henry from [employer].
--- NOTE | 2018-10-29 07:42 | CP.PCM.PN ---
Objective - Vital Signs/Intake and Output Vital Signs (last 24 hours): Temp Pulse Resp BP Pulse Ox 97.7 F 64 20 128/73 98 10/28/18 23:15 10/29/18 01:31 10/28/18 23:15 10/28/18 23:15 10/28/18 23:15 - Medications Medications: Current Medications Albuterol/Ipratropium (Duoneb 3 Mg/0.5 Mg (3 Ml) Ud) 3 ml INH RQ6 PRN PRN Reason: Shortness of Breath Amlodipine Besylate (Norvasc) 5 mg PO DAILY JEZ Amoxicillin/Clavulanate Potassium (Augmentin 875 Mg-125 Mg Tab) 1 tab PO Q12H JEZ; Protocol Famotidine (Pepcid) 20 mg PO DAILY JEZ Hydrochlorothiazide (Hydrodiuril) 25 mg PO DAILY JEZ Losartan Potassium (Cozaar) 100 mg PO DAILY JEZ Metoprolol Tartrate (Lopressor) 25 mg PO DAILY JEZ Rosuvastatin Calcium (Crestor) 2.5 mg PO HS JEZ - Labs Labs: 10/28/18 19:59 10/28/18 19:59 PT 11.6 SECONDS (9.7-12.2) 10/28/18 19:59 INR 1.1 10/28/18 19:59 APTT 39.0 SECONDS (21-34) H 10/28/18 19:59
[2018-10-29 07:58] LABS: BASO # 0.1 K/uL (0.0-0.2); BASO % 1.6 % (0.0-2.0); EOS # 0.2 K/uL (0.0-0.7); HEMOGLOBIN 12.1 g/dL (11.0-16.0); LYMPH # 1.4 K/uL (1.0-4.3); LYMPH % 36.9 % (20.0-40.0); MEAN CORPUSCULAR HEMOGLOBIN 23.7 pg (27.0-31.0); MEAN PLATELET VOLUME 8.6 fL (7.2-11.7); MONO # 0.3 K/uL (0.0-0.8); MONO % 8.6 % (0.0-10.0); NEUT # 1.8 K/uL (1.8-7.0); NEUT % 46.9 % (50.0-75.0); NRBC % 0.1 % (0.0-2.0); RBC 5.11 Mil/uL (3.80-5.20); RED CELL DISTRIBUTION WIDTH 14.7 % (11.5-14.5); WHITE BLOOD COUNT 3.9 K/uL (4.8-10.8)
[2018-10-29 08:24] LABS: ALB/GLOB RATIO 1.3 (1.0-2.1); ALBUMIN 4.3 g/dL (3.5-5.0); ALT/SGPT 30 U/L (9-52); AST/SGOT 29 U/L (14-36); BLOOD UREA NITROGEN 10 mg/dL (7-17); CALCIUM 9.3 mg/dl (8.6-10.4); GFR NON-AFRICAN AMERICAN > 60
[2018-10-29 08:54] VITALS: BP 151/89; PULSE 77; TEMP 98.6; O2SAT 99
--- NOTE | 2018-10-29 08:55 | CT ---
Date of service: 10/28/2018 PROCEDURE: CTA HEAD AND NECK WITH CONTRAST HISTORY: code stroke COMPARISON: 04/23/2018. TECHNIQUE: Initial noncontrast head CT was performed. Subsequently, CT angiogram of the head and neck were performed after the intravenous administration of 80 mL of Omnipaque 350. Contiguous 1.5mm thick images were obtained in the axial plane of the neck. 2-D coronal and sagittal MPR images were obtained. Imaging postprocessing was performed with 3-D images also obtained. A delayed contrast head CT was also obtained. This CT exam was performed using one or more of the following dose reduction techniques: Automated exposure control, adjustment of the mA and/or kV according to patient size, and/or use of iterative reconstruction technique. Contrast dose: 100 mL Omnipaque 350 Radiation dose: Total exam DLP = 499.36 mGy-cm. FINDINGS: HEAD: Right: The intracranial internal carotid artery, and anterior and middle cerebral arteries are widely patent. Left: The intracranial internal carotid artery, and anterior and middle cerebral arteries are widely patent. Posterior circulation: The visualized intracranial vertebral arteries, basilar artery and posterior cerebral arteries are widely patent. There is no endoluminal filling defect to suggest thrombus. There is no intracranial saccular aneurysm. NECK: There is a three vessel aortic arch. There is no stenosis at the origins of the great vessels at the level of the aortic arch. No atherosclerotic calcification or mural plaque present. Right Carotid: On the right, the common carotid, internal carotid and external carotid arteries are widely patent. There is no hemodynamically significant stenosis in the internal carotid artery by NASCET criteria. Left Carotid: On the left, the common carotid, internal carotid and external carotid arteries are widely patent. There is no hemodynamically significant stenosis in the internal carotid artery by NASCET criteria. The vertebral arteries are widely patent. The left vertebral artery is hypoplastic, an anatomic variant. The visualized soft tissues of the neck are normal. The visualized brain and cervical spine are within normal limits. The lung apices are clear. Fluid in bilateral maxillary sinuses which may represent acute sinusitis in the appropriate clinical setting. IMPRESSION: 1. No evidence of endoluminal thrombus,occlusion or definite significant stenosis in the intracranial arteries. 2. No evidence of hemodynamically significant stenosis in the internal carotid arteries. 3. Patent bilateral vertebral arteries. A preliminary report was provided by [employer].
--- NOTE | 2018-10-29 11:11 | RAD ---
Date of service: 10/28/2018 HISTORY: Code Stroke COMPARISON: 04/23/2018. FINDINGS: LUNGS: The lungs are well inflated and clear. PLEURA: No pleural effusions or pneumothorax. CARDIOVASCULAR: The heart is normal in size. There are aortic atherosclerotic calcifications present. OSSEOUS STRUCTURES: Within normal limits for the patient's age. VISUALIZED UPPER ABDOMEN: Normal. OTHER FINDINGS: None. IMPRESSION: No active pulmonary disease.
--- NOTE | 2018-10-29 11:13 | CP.PCM.CON ---
History of Present Illness - History of Present Illness History of Present Illness: 63 year old black female with a past medical history of hypertension and dyslipidemia who presented with severe posterior headache that started yesterday at 14:00. She reports the headache is subdued by sleeping. She reports the headache is not that severe and scales it a 5/10 in severity. She thinks the headache is a manifestation of her blood pressure being elevated. She reports having more sever headache in the past. At the time of my examination, she denies any focal neurologic deficits, fever, chills, vomiting, diarrhea, ti nnitus, diplopoia, eructation, vertigo, chest pain. The headache responds to Tylenol #3. Medical history: arthritis, anxiety, asthma?, caraiac arrhythmia, hypertension, hypercholesterolemia and TIA Allergies: Codeine Medicatons: Metoprolol 25mg PO DAILY, Simivistatin 10mg PO DAILY, Losartan-HCTZ 100-25mg PO DAILY, Amlodipine 5mg PO DAILY Surgical history: cholecystectomy, endoscopy, Family history: Mom at 31 2/2 to childbirth Social history: Social etoh use. Denies smoking or illicit drugs. Retired (Former Java Sql Developer at [employer] Past Patient History - Infectious Disease Hx of Infectious Diseases: None - Past Medical History & Family History Past Medical History?: Yes - Past Social History Smoking Status: Never Smoked - CARDIAC Hx Cardia Arrhythmia: Yes Hx Hypercholesterolemia: Yes Hx Hypertension: Yes - PULMONARY Hx Asthma: Yes (NEWLY DIAGNOSED) - NEUROLOGICAL Hx Neurological Disorder: Yes Hx Vertigo: Yes - HEENT Hx HEENT Problems: No - RENAL Hx Chronic Kidney Disease: No - ENDOCRINE/METABOLIC Hx Endocrine Disorders: No - HEMATOLOGICAL/ONCOLOGICAL Hx Blood Disorders: No - INTEGUMENTARY Hx Dermatological Problems: No - MUSCULOSKELETAL/RHEUMATOLOGICAL Hx Arthritis: Yes - GASTROINTESTINAL Hx Gastrointestinal Disorders: No - GENITOURINARY/GYNECOLOGICAL Hx Genitourinary Disorders: No - PSYCHIATRIC Hx Anxiety: Yes Hx Substance Use: No - SURGICAL HISTORY Hx Cholecystectomy: Yes - ANESTHESIA Hx Anesthesia: Yes Hx Anesthesia Reactions: No Hx Malignant Hyperthermia: No Meds Home Medications: Home Medication List Medication Instructions Recorded Confirmed Type Linaclotide [Linzess] 145 mcg PO DAILY #30 capsule 10/29/18 Rx Losartan/Hydrochlorothiazide 1 tab PO DAILY #30 tablet 10/29/18 Rx [Hyzaar 100-25 Tablet] Metoprolol Tartrate 25 mg PO DAILY #30 tablet 10/29/18 Rx Metoprolol Tartrate [Lopressor] 25 mg PO DAILY #30 tab 10/29/18 Rx Simvastatin 10 mg PO HS #30 tablet 10/29/18 Rx amLODIPine [Norvasc] 5 mg PO DAILY #30 tab 10/29/18 Rx Allergies/Adverse Reactions: Allergies Allergy/AdvReac Type Severity Reaction Status Date / Time codeine Allergy DIZZINESS Verified 10/28/18 19:33 - Medications Medications: Current Medications Albuterol/Ipratropium (Duoneb 3 Mg/0.5 Mg (3 Ml) Ud) 3 ml INH RQ6 PRN PRN Reason: Shortness of Breath Amlodipine Besylate (Norvasc) 5 mg PO DAILY [facility] Last Admin: 10/29/18 09:50 Dose: 5 mg Amoxicillin/Clavulanate Potassium (Augmentin 875 Mg-125 Mg Tab) 1 tab PO Q12H [facility]; Protocol Last Admin: 10/29/18 09:50 Dose: 1 tab Famotidine (Pepcid) 20 mg PO DAILY [facility] Last Admin: 10/29/18 09:50 Dose: 20 mg Hydrochlorothiazide (Hydrodiuril) 25 mg PO DAILY [facility] Last Admin: 10/29/18 10:08 Dose: 25 mg Losartan Potassium (Cozaar) 100 mg PO DAILY [facility] Last Admin: 10/29/18 09:50 Dose: 100 mg Metoprolol Tartrate (Lopressor) 25 mg PO DAILY [facility] Last Admin: 10/29/18 09:52 Dose: 25 mg Rosuvastatin Calcium (Crestor) 2.5 mg PO [facility] Physical Exam - Head Exam Head Exam: ATRAUMATIC, NORMOCEPHALIC - Eye Exam Eye Exam: EOMI, Normal appearance - ENT Exam ENT Exam: Mucous Membranes Moist, Normal Oropharynx - Neck Exam Neck exam: Positive for: Normal Inspection - Respiratory Exam Respiratory Exam: NORMAL BREATHING PATTERN. absent: Accessory Muscle Use - Cardiovascular Exam Cardiovascular Exam: RRR, +S1, +S2 - Extremities Exam Extremities exam: Positive for: normal inspection. Negative for: calf tenderness - Neurological Exam Neurological exam: Alert, CN II-XII Intact, Normal Gait, Oriented x3 - Psychiatric Exam Psychiatric exam: Normal Affect, Normal Mood - Skin Skin Exam: Dry, Intact, Normal Color, Warm Results - Vital Signs Recent Vital Signs: Last Vital Signs Temp 98.6 F 10/29/18 07:00 Pulse 77 10/29/18 07:00 Resp 20 10/29/18 07:00 BP 151/89 H 10/29/18 07:00 Pulse Ox 99 10/29/18 07:00 - Labs Result Diagrams: 10/29/18 07:26 10/29/18 07:26 Labs: Laboratory Results - last 24 hr 10/28/18 10/28/18 10/28/18 19:45 19:59 19:59 WBC 6.1 D RBC 5.38 H Hgb 12.6 Hct 39.1 MCV 72.8 L MCH 23.4 L MCHC 32.2 L RDW 14.9 H Plt Count 218 MPV 8.4 Neut % (Auto) 47.0 L Lymph % (Auto) 39.9 [place] % (Auto) 7.2 Eos % (Auto) 4.7 H Baso % (Auto) 1.2 Neut # (Auto) 2.9 Lymph # (Auto) 2.4 [place] # (Auto) 0.4 Eos # (Auto) 0.3 Baso # (Auto) 0.1 PT 11.6 INR 1.1 APTT 39.0 H Sodium Potassium Chloride Carbon Dioxide Anion Gap BUN Creatinine Est GFR ( Amer) Est GFR (Non-Af Amer) POC Glucose (mg/dL) 113 H Random Glucose Hemoglobin A1c Calcium Total Bilirubin AST ALT Alkaline Phosphatase Total Creatine Kinase CK-MB (Mass) Troponin I Total Protein Albumin Globulin Albumin/Globulin Ratio Triglycerides Cholesterol LDL Cholesterol Direct HDL Cholesterol TSH 3rd Generation Blood Type Antibody Screen 10/28/18 10/28/18 10/28/18 19:59 19:59 19:59 WBC RBC Hgb Hct MCV MCH MCHC RDW Plt Count MPV Neut % (Auto) Lymph % (Auto) [place] % (Auto) Eos % (Auto) Baso % (Auto) Neut # (Auto) Lymph # (Auto) [place] # (Auto) Eos # (Auto) Baso # (Auto) PT INR APTT Sodium 143 Potassium 3.4 L Chloride 102 Carbon Dioxide 28 Anion Gap 16 BUN 15 Creatinine 0.8 Est GFR ( Amer) > 60 Est GFR (Non-Af Amer) > 60 POC Glucose (mg/dL) Random Glucose 98 Hemoglobin A1c 6.3 Calcium 10.1 Total Bilirubin 0.3 AST 27 ALT 20 Alkaline Phosphatase 76 Total Creatine Kinase CK-MB (Mass) Troponin I < 0.0120 Total Protein 9.0 H Albumin 4.9 Globulin 4.1 H Albumin/Globulin Ratio 1.2 Triglycerides 225 H D Cholesterol 225 H LDL Cholesterol Direct 146 H HDL Cholesterol 51 TSH 3rd Generation Blood Type A POSITIVE Antibody Screen Negative 10/29/18 10/29/18 10/29/18 02:28 07:26 07:26 WBC 3.9 L RBC 5.11 Hgb 12.1 Hct 37.8 MCV 74.0 L MCH 23.7 L MCHC 32.0 L RDW 14.7 H Plt Count 206 MPV 8.6 Neut % (Auto) 46.9 L Lymph % (Auto) 36.9 [place] % (Auto) 8.6 Eos % (Auto) 6.0 H Baso % (Auto) 1.6 Neut # (Auto) 1.8 Lymph # (Auto) 1.4 [place] # (Auto) 0.3 Eos # (Auto) 0.2 Baso # (Auto) 0.1 PT INR APTT Sodium 142 Potassium 3.7 Chloride 102 Carbon Dioxide 29 Anion Gap 14 BUN 10 Creatinine 0.8 Est GFR ( Amer) > 60 Est GFR (Non-Af Amer) > 60 POC Glucose (mg/dL) Random Glucose 98 Hemoglobin A1c Calcium 9.3 Total Bilirubin 0.3 AST 29 ALT 30 Alkaline Phosphatase 65 Total Creatine Kinase 93 CK-MB (Mass) 0.52 Troponin I < 0.0120 Total Protein 7.7 Albumin 4.3 Globulin 3.4 Albumin/Globulin Ratio 1.3 Triglycerides Cholesterol LDL Cholesterol Direct HDL Cholesterol TSH 3rd Generation 1.38 Blood Type Antibody Screen 10/29/18 10/29/18 07:26 07:26 WBC RBC Hgb Hct MCV MCH MCHC RDW Plt Count MPV Neut % (Auto) Lymph % (Auto) [place] % (Auto) Eos % (Auto) Baso % (Auto) Neut # (Auto) Lymph # (Auto) [place] # (Auto) Eos # (Auto) Baso # (Auto) PT INR APTT Sodium Potassium Chloride Carbon Dioxide Anion Gap BUN Creatinine Est GFR ( Amer) Est GFR (Non-Af Amer) POC Glucose (mg/dL) Random Glucose Hemoglobin A1c 6.5 Calcium Total Bilirubin AST ALT Alkaline Phosphatase Total Creatine Kinase 85 CK-MB (Mass) 0.40 Troponin I < 0.0120 Total Protein Albumin Globulin Albumin/Globulin Ratio Triglycerides Cholesterol LDL Cholesterol Direct HDL Cholesterol TSH 3rd Generation Blood Type Antibody Screen Assessment & Plan - Assessment and Plan (Free Text) Assessment: 63 year old female with a past medical history of hypertension and dyslipidemia who presented with a posterior headache without any focal neurologic deficits. 1) Complex migraine - Ordered MRI of brain to rule out acute infarction - Recommend moderate intensity statin and aspirin 2) Dyslipidemia - Moderate intensity statin Case was reviewed and discussed with attending physician, Dr. Robbins
--- NOTE | 2018-10-29 17:34 | CP.PCM.DIS ---
<YosefLorriBlayne M - Last Filed: 10/29/18 17:45> Provider - Provider Date of Admission: 10/28/18 21:12 Attending physician: Madhu Jolly MD Primary care physician: Consults: 10/28/18 19:50 Stroke Team Consult Stat Comment: ching Consulting Provider: Neurohospitalist Consulting Physician: NEUROHOSP Neurohospitalist for Consult: Emmett Robbins Neurohospitalist for Consult: Vinny Lipscomb Reason for Consult: ching 10/29/18 06:45 Neurology Consult Routine Comment: Consulting Provider: Emmett Robbins Consulting Physician: Emmett Robbins Reason for Consult: code stroke Time Spent in preparation of Discharge (in minutes): 40 Hospital Course - Lab Results Lab Results: Most Recent Lab Values WBC 3.9 K/uL (4.8-10.8) L 10/29/18 07:26 RBC 5.11 Mil/uL (3.80-5.20) 10/29/18 07:26 Hgb 12.1 g/dL (11.0-16.0) 10/29/18 07:26 Hct 37.8 % (34.0-47.0) 10/29/18 07:26 MCV 74.0 fL (81.0-99.0) L 10/29/18 07:26 MCH 23.7 pg (27.0-31.0) L 10/29/18 07:26 MCHC 32.0 g/dL (33.0-37.0) L 10/29/18 07:26 RDW 14.7 % (11.5-14.5) H 10/29/18 07:26 Plt Count 206 K/uL (130-400) 10/29/18 07:26 MPV 8.6 fL (7.2-11.7) 10/29/18 07:26 Neut % (Auto) 46.9 % (50.0-75.0) L 10/29/18 07:26 Lymph % (Auto) 36.9 % (20.0-40.0) 10/29/18 07:26 [place] % (Auto) 8.6 % (0.0-10.0) 10/29/18 07:26 Eos % (Auto) 6.0 % (0.0-4.0) H 10/29/18 07:26 Baso % (Auto) 1.6 % (0.0-2.0) 10/29/18 07:26 Neut # (Auto) 1.8 K/uL (1.8-7.0) 10/29/18 07:26 Lymph # (Auto) 1.4 K/uL (1.0-4.3) 10/29/18 07:26 [place] # (Auto) 0.3 K/uL (0.0-0.8) 10/29/18 07:26 Eos # (Auto) 0.2 K/uL (0.0-0.7) 10/29/18 07:26 Baso # (Auto) 0.1 K/uL (0.0-0.2) 10/29/18 07:26 PT 11.6 SECONDS (9.7-12.2) 10/28/18 19:59 INR 1.1 10/28/18 19:59 APTT 39.0 SECONDS (21-34) H 10/28/18 19:59 Sodium 142 mmol/L (132-148) 10/29/18 07:26 Potassium 3.7 mmol/L (3.6-5.2) 10/29/18 07:26 Chloride 102 mmol/L (98-107) 10/29/18 07:26 Carbon Dioxide 29 mmol/L (22-30) 10/29/18 07:26 Anion Gap 14 (10-20) 10/29/18 07:26 BUN 10 mg/dL (7-17) 10/29/18 07:26 Creatinine 0.8 mg/dL (0.7-1.2) 10/29/18 07:26 Est GFR ( Amer) > 60 10/29/18 07:26 Est GFR (Non-Af Amer) > 60 10/29/18 07:26 POC Glucose (mg/dL) 105 mg/dL (65-110) 10/29/18 06:25 Random Glucose 98 mg/dL (65-105) 10/29/18 07:26 Hemoglobin A1c 6.5 % (4.2-6.5) 10/29/18 07:26 Calcium 9.3 mg/dl (8.6-10.4) 10/29/18 07:26 Total Bilirubin 0.3 mg/dL (0.2-1.3) 10/29/18 07:26 AST 29 U/L (14-36) 10/29/18 07:26 ALT 30 U/L (9-52) 10/29/18 07:26 Alkaline Phosphatase 65 U/L (38-126) 10/29/18 07:26 Total Creatine Kinase 85 U/L (30-135) 10/29/18 07:26 CK-MB (Mass) 0.40 ng/mL (0.0-3.38) 10/29/18 07:26 Troponin I < 0.0120 ng/mL (0.00-0.120) 10/29/18 07:26 Total Protein 7.7 g/dL (6.3-8.3) 10/29/18 07:26 Albumin 4.3 g/dL (3.5-5.0) 10/29/18 07:26 Globulin 3.4 gm/dL (2.2-3.9) 10/29/18 07:26 Albumin/Globulin Ratio 1.3 (1.0-2.1) 10/29/18 07:26 Triglycerides 225 mg/dL (0-149) H D 10/28/18 19:59 Cholesterol 225 mg/dL (0-199) H 10/28/18 19:59 LDL Cholesterol Direct 146 mg/dL (0-129) H 10/28/18 19:59 HDL Cholesterol 51 mg/dL (30-70) 10/28/18 19:59 TSH 3rd Generation 1.38 mIU/L (0.46-4.68) 10/29/18 07:26 Blood Type A POSITIVE 10/28/18 19:59 Antibody Screen Negative 10/28/18 19:59 - Hospital Course Hospital Course: HPI: 63 year old female with a past medical history of arthritis, anxiety, asthma?, caraiac arrhythmia, hypertension, hypercholesterolemia and TIA presents to hospital after reporting posterior neck stress at the base of her neck that began at 2p.m. Patient states she was resting when the pain began. She rated the pain a 4/10 or 5/10 in severity with no radiation. Patient does report ta landry Aspirin with no relief in symptoms. Patient also reported chest pressure that began at the same time as the neck stress. Patient states it's mid-sternal with no radiation. Patient stated the pain was a 5/10 in severity with no improvement in symptoms. Patient also reported nausea and shortness of breath in conjunction with the presenting symptoms. Patient recently lost two friends from CVA and that prompted her to come in to the emergency department. Patient denies any nausea, changes in vision, palpitation, dizziness, syncopal, episodes, or any other complaints. Hospital course: Pt troponins were monitored X3 negative. Pt patients chronic medications were resumed. Patient pulled hep lock out herself and requested no further workup in hoptal. Patient offered MRI due to CT showing questionable infarct; how patient requested outpatient work up as her previous TIA had symptoms of numbing of face, which has been resolved since last TIA had NISS of 0. Diet and exercise explained to patient as LDL in 140s. Pt reports ECHO performed 1 year prior in outpatien tthat was normal. Head CTA normal. Above is only a summary of patients stay. See EMR for full details. Below are discharge instructions provided to patient upon discharge. Patient is stable for discharge per Dr. Cantu. Patient should follow up with her primary doctor, Dr. Jason Pitt within 1 week. Patient should resume all her home medications as prescribed by her primary doctor. Refills will be given - Metoprolol tartrate 25 mg, 1 tablet per mouth daily - Losartan/hydrochlorothiazide 100-25, 1 tablet per mouth daily - Amlodipine 5 mg, 1 tablet per mouth daily - Simvastatin 10 mg, 1 tablet per mouth at bedtime - Linzess 145 mcg, 1 tablet per mouth daily Additionally patient should modify their diet to incorporate more vegetables and fruits and less cheesy/greasy/salty foods. If patient any previous symptoms, including, but not limited to facial numbness, speech changes, arm weakness, please return to the nearest medical facility. Please take care and be well. Discharge Exam - Head Exam Head Exam: ATRAUMATIC, NORMAL INSPECTION - Eye Exam Eye Exam: EOMI, Normal appearance - ENT Exam ENT Exam: Mucous Membranes Moist - Respiratory Exam Respiratory Exam: absent: Chest Wall Tenderness, Clear to PA & Lateral - Cardiovascular Exam Cardiovascular Exam: +S1, +S2. absent: Systolic Murmur - GI/Abdominal Exam GI & Abdominal Exam: absent: Distended, Firm - Extremities Exam Additional comments: no pedal edema, no calf tenderess - Back Exam Back exam: absent: CVA tenderness (L), CVA tenderness (R) - Neurological Exam Neurological exam: Alert, Oriented x3 - Psychiatric Exam Psychiatric exam: Normal Affect, Normal Mood - Skin Skin Exam: Dry, Intact, Normal Color Discharge Plan - Discharge Medications Prescriptions: amLODIPine [Norvasc] 5 mg PO DAILY #30 tab Linaclotide [Linzess] 145 mcg PO DAILY #30 capsule Losartan/Hydrochlorothiazide [Hyzaar 100-25 Tablet] 1 tab PO DAILY #30 tablet Metoprolol Tartrate 25 mg PO DAILY #30 tablet Metoprolol Tartrate [Lopressor] 25 mg PO DAILY #30 tab Simvastatin 10 mg PO HS #30 tablet - Follow Up Plan Condition: FAIR Disposition: HOME/ ROUTINE Instructions: Heart Healthy Diet, Chest Pain (DC), Headache, Adult (DC), Linaclotide, Amlodipine, Losartan and Hydrochlorothiazide, Metoprolol, Simvastatin Additional Instructions: Patient is stable for discharge per Dr. Cantu. Patient should follow up with her primary doctor, Dr. Jason Pitt within 1 week. Patient should resume all her home medications as prescribed by her primary doctor. Refills will be given - Metoprolol tartrate 25 mg, 1 tablet per mouth daily - Losartan/hydrochlorothiazide 100-25, 1 tablet per mouth daily - Amlodipine 5 mg, 1 tablet per mouth daily - Simvastatin 10 mg, 1 tablet per mouth at bedtime - Linzess 145 mcg, 1 tablet per mouth daily Additionally patient should modify their diet to incorporate more vegetables and fruits and less cheesy/greasy/salty foods. If patient any previous symptoms, including, but not limited to facial numbness, speech changes, arm weakness, please return to the nearest medical facility. Please take care and be well. Referrals: Daryn Gomez MD [Staff Provider] - <Nathan Cantu - Last Filed: 10/29/18 18:39> Provider - Provider Date of Admission: 10/28/18 21:12 Attending physician: Madhu Jolly MD Consults: 10/28/18 19:50 Stroke Team Consult Stat Comment: jeane Consulting Provider: Neurohospitalist Consulting Physician: NEUROHOSP Neurohospitalist for Consult: Emmett Robbins Neurohospitalist for Consult: Vinny Lipscomb Reason for Consult: jeane 10/29/18 06:45 Neurology Consult Routine Comment: Consulting Provider: Emmett Robbins Consulting Physician: Emmett Robbins Reason for Consult: code stroke Hospital Course - Lab Results Lab Results: Most Recent Lab Values WBC 3.9 K/uL (4.8-10.8) L 10/29/18 07:26 RBC 5.11 Mil/uL (3.80-5.20) 10/29/18 07:26 Hgb 12.1 g/dL (11.0-16.0) 10/29/18 07:26 Hct 37.8 % (34.0-47.0) 10/29/18 07:26 MCV 74.0 fL (81.0-99.0) L 10/29/18 07:26 MCH 23.7 pg (27.0-31.0) L 10/29/18 07: MCHC 32.0 g/dL (33.0-37.0) L 10/29/18 07:26 RDW 14.7 % (11.5-14.5) H 10/29/18 07:26 Plt Count 206 K/uL (130-400) 10/29/18 07:26 MPV 8.6 fL (7.2-11.7) 10/29/18 07:26 Neut % (Auto) 46.9 % (50.0-75.0) L 10/29/18 07:26 Lymph % (Auto) 36.9 % (20.0-40.0) 10/29/18 07:26 [place] % (Auto) 8.6 % (0.0-10.0) 10/29/18 07:26 Eos % (Auto) 6.0 % (0.0-4.0) H 10/29/18 07:26 Baso % (Auto) 1.6 % (0.0-2.0) 10/29/18 07:26 Neut # (Auto) 1.8 K/uL (1.8-7.0) 10/29/18 07:26 Lymph # (Auto) 1.4 K/uL (1.0-4.3) 10/29/18 07:26 [place] # (Auto) 0.3 K/uL (0.0-0.8) 10/29/18 07:26 Eos # (Auto) 0.2 K/uL (0.0-0.7) 10/29/18 07:26 Baso # (Auto) 0.1 K/uL (0.0-0.2) 10/29/18 07:26 PT 11.6 SECONDS (9.7-12.2) 10/28/18 19:59 INR 1.1 10/28/18 19:59 APTT 39.0 SECONDS (21-34) H 10/28/18 19:59 Sodium 142 mmol/L (132-148) 10/29/18 07:26 Potassium 3.7 mmol/L (3.6-5.2) 10/29/18 07:26 Chloride 102 mmol/L (98-107) 10/29/18 07:26 Carbon Dioxide 29 mmol/L (22-30) 10/29/18 07:26 Anion Gap 14 (10-20) 10/29/18 07:26 BUN 10 mg/dL (7-17) 10/29/18 07:26 Creatinine 0.8 mg/dL (0.7-1.2) 10/29/18 07:26 Est GFR ( Amer) > 60 10/29/18 07:26 Est GFR (Non-Af Amer) > 60 10/29/18 07:26 POC Glucose (mg/dL) 105 mg/dL (65-110) 10/29/18 06:25 Random Glucose 98 mg/dL (65-105) 10/29/18 07:26 Hemoglobin A1c 6.5 % (4.2-6.5) 10/29/18 07:26 Calcium 9.3 mg/dl (8.6-10.4) 10/29/18 07:26 Total Bilirubin 0.3 mg/dL (0.2-1.3) 10/29/18 07:26 AST 29 U/L (14-36) 10/29/18 07:26 ALT 30 U/L (9-52) 10/29/18 07:26 Alkaline Phosphatase 65 U/L (38-126) 10/29/18 07:26 Total Creatine Kinase 85 U/L (30-135) 10/29/18 07:26 CK-MB (Mass) 0.40 ng/mL (0.0-3.38) 10/29/18 07:26 Troponin I < 0.0120 ng/mL (0.00-0.120) 10/29/18 07:26 Total Protein 7.7 g/dL (6.3-8.3) 10/29/18 07:26 Albumin 4.3 g/dL (3.5-5.0) 10/29/18 07:26 Globulin 3.4 gm/dL (2.2-3.9) 10/29/18 07:26 Albumin/Globulin Ratio 1.3 (1.0-2.1) 10/29/18 07:26 Triglycerides 225 mg/dL (0-149) H D 10/28/18 19:59 Cholesterol 225 mg/dL (0-199) H 10/28/18 19:59 LDL Cholesterol Direct 146 mg/dL (0-129) H 10/28/18 19:59 HDL Cholesterol 51 mg/dL (30-70) 10/28/18 19:59 TSH 3rd Generation 1.38 mIU/L (0.46-4.68) 10/29/18 07:26 Blood Type A POSITIVE 10/28/18 19:59 Antibody Screen Negative 10/28/18 19:59 Attending/Attestation - Attestation I have personally seen and examined this patient.: Yes I have fully participated in the care of the patient.: Yes I have reviewed all pertinent clinical information, including history, physical exam and plan: Yes Notes (Text): 10/29/18 18:30 Medical attending: Patient was seen and examined by me. Agree with the above not e by the resident The patient this morning had already removed her IV, removed her telemetry and was already dressed getting ready to leave. We talked for some length and we went over the CT, CTA of the head. She was still reporting some minimal headache however much improved then when she came last night. The CT scan of the head suggested there may be a lacunar area infarction and I explained that to her and that the report suggest MRI. I explained that to her She has had an MRI in 2017, and she explained she would like to forgoe that test and be discharged. On exam CN 2-12 intact, EOMI, no facial drooping, and she did not have muscle defits and we walked her around the entire 6T and she did very well walking around. Her risk factors are cholesterol, HTN, and in the past TIAs. We told her this and emphaiszed the importance of taking medications and follow up with her physician Nathan Cantu
[2018-10-29] MEDS ORDERED: Rosuvastatin Calcium 2.5 mg Tab PO SCH (22:00)
--- NOTE | 2018-10-30 14:29 | CARD ---
APPROVED REPORT Date of service: 10/29/2018 EKG Measurement Heart [id number] <Conclusion> Sinus rhythm with 1st degree AV block Otherwise normal ECG
--- NOTE | 2018-11-01 14:24 | CARD ---
APPROVED REPORT Date of service: 10/28/2018 EKG Measurement Heart [id number] <Conclusion> Sinus rhythm with marked sinus arrhythmia Possible Left atrial enlargement Anterior infarct, age undetermined Abnormal ECG
== END 2018-10-29 13:08 | disposition home or self-care (01) ==
LOC: C.ER 19:22 → C.9E 21:12 → C.6T 22:08
PROVIDERS: ADMIT Emergency Medicine; ATTEND Emergency Medicine
DX: R07.89 Other chest pain (principal); I10 Essential (primary) hypertension; E78.5 Hyperlipidemia, unspecified; J45.909 Unspecified asthma, uncomplicated; Z86.73 Personal history of transient ischemic attack (TIA), and cerebral infarction without residual deficits
CPT/HCPCS: 36415; 70450; 70496; 70498; 71045; 80053; 80061; 82948; 83036; 84443; 84484; 85025; 85610; 85730; 86850; 86900; 93005; 97116; 97161; 97165; 97530; 99285; G0378; G8978; G8979; G8980; G8987; G8988; G8989; J7030; Q9967